=== PATIENT | female | born 1960 | race Caucasian/White ===

== ENCOUNTER → 2016-10-25 | Outpatient (CLI) | payer OTHER ==
[~2016-10-25] MED LIST: OXYC10TA12 OR
[2016-10-25 09:16] LABS: BASO % 0.6 % (0.0-1.0); EOS # 0.2 K/mm3 (0.0-0.50); EOS % 2.7 % (0.0-3.0); LARGE UNSTAINED CELL # 0.1 K/mm3 (0.0-0.4); LARGE UNSTAINED CELL % 1.2 % (0.0-4.0); LYMPH # 2.7 K/mm3 (1.5-4.5); LYMPH % 32.9 % (24.0-44.0); MEAN CORPUSCULAR HEMOGLOBIN 31.5 pg (27.0-33.0); MEAN CORPUSCULAR HGB CONC 34.2 g/dl (32.0-36.5); MONO # 0.4 K/mm3 (0.0-0.8); MONO % 4.9 % (0.0-5.0); NEUTROPHILS # 4.7 K/mm3 (1.8-7.7); NEUTROPHILS % 57.7 % (36.0-66.0); PLATELET COUNT, AUTOMATED 264 k/mm3 (150-450); RED CELL DISTRIBUTION WIDTH 13.2 % (11.5-14.5); WHITE BLOOD COUNT 8.2 K/mm3 (4.0-10.0)
[2016-10-25 11:00] LABS: ANION GAP 6 MEQ/L (8-16); BLOOD UREA NITROGEN 16 MG/DL (7-18); CALCIUM LEVEL 9.1 MG/DL (8.5-10.1); CARBON DIOXIDE LEVEL 29 MEQ/L (21-32); CHLORIDE LEVEL 109 MEQ/L (98-107); CREATININE FOR GFR 0.88 MG/DL (0.55-1.02); GLOMERULAR FILTRATION RATE > 60.0 (>51); GLUCOSE, FASTING 111 MG/DL (70-105); POTASSIUM SERUM 4.2 MEQ/L (3.5-5.1); SODIUM LEVEL 144 MEQ/L (136-145)
[2016-10-25 11:01] LABS: ALBUMIN 3.7 GM/DL (3.2-5.2); ALBUMIN/GLOBULIN RATIO 1.19 (1.00-1.93); ALKALINE PHOSPHATASE 71 U/L (45-117); ALT/SGPT 26 U/L (12-78); AST/SGOT 15 U/L (15-37); BILIRUBIN,TOTAL 0.5 MG/DL (0.2-1.0); CHOLESTEROL LEVEL 233 MG/DL (<200); TOTAL PROTEIN 6.8 GM/DL (6.4-8.2); TRIGLYCERIDES LEVEL 165 MG/DL (<150)
[2016-10-25 11:02] LABS: FREE T4 0.81 NG/DL (0.76-1.46)
== END ==
LOC: M LAB 08:50
PROVIDERS: ATTEND Nurse Practitioner Family
DX: E03.9 Hypothyroidism, unspecified (principal); Z13.228 Encounter for screening for other metabolic disorders; Z78.9 Other specified health status; Z13.0 Encounter for screening for diseases of the blood and blood-forming organs and certain disorders involving the immune mechanism; Z13.220 Encounter for screening for lipoid disorders

== ENCOUNTER 2016-11-08 19:33 | Emergency (ER) | payer OTHER ==
[2016-11-08] MEDS ORDERED: IBUPROFEN 800 MG TAB As Ordered ONE (19:57)
[2016-11-08] MEDS ORDERED: ONDANSETRON 4 MG ORAL DISINTEGRATING TAB (S0181) As Ordered ONE (19:57)
--- NOTE | 2016-11-08 22:47 | EDDOCDS ---
Nurse's Notes [facility] Name: Tessa Hughes Age: 55 yrs Sex: Female : 1960 Arrival Date: 11/08/2016 Time: 19:33 Bed Triage 2 Private MD: [facility] - [facility] Diagnosis: Cervical disc disorder with radiculopathy, mid-cervical region Presentation: 11/08 19:46 Red Flag criteria, pt brought back to room 26 for triage and for vital recheck. ko2 19:46 Presenting complaint: Significant other states: "severe LI for past 5 days" began jjr vomiting approx 90 minutes ago, numbness to right hand began yesterday and noted rash to right hand today. This patient has no additional risk factors. Adult Sepsis Screening: The patient does not have new or worsening altered mentation. Patient's respiratory rate is less than 22. Systolic blood pressure is greater than 100. Patient has a qSOFA score of 0- Negative Sepsis Screen. Suicide/Homicide risk assessment- the patient denies having any suicidal and/or homicidal ideations and does not present with any other emotional, behavioral or mental health complaints. Status: Patient is not a equipment services associate or dependent. Transition of care: patient was not received from another setting of care. 19:46 Acuity: DANIELLE Level 3 jjr 19:46 Method Of Arrival: Walkin/Carried/Asstd jjr Triage Assessment: 19:50 Headache History: This headache is more severe than any previous headaches the patient jjr has experienced. General: Appears in no apparent distress, Behavior is appropriate for age. Pain: Pain currently is 10 out of 10 on a pain scale. Pain began 5 days ago. Pain: Also complains of nausea, photophobia. HIV screening NA for this visit Offered previously. Neurological: Digital Asset Coordinator are equal bilaterally Reports headache numbness. Historical: - Allergies: Amoxicillin (medeiros to tongue); Ciprofloxacin (Rash); Benadryl (Hives); Codeine Sulfate (Hives); Erythromycin (Hives); Flexeril (Hives)states tongue swells; SULFA (SULFONAMIDES) (Hives); - Home Meds: 1. levothyroxine 112 mcg Oral tab 1 tab once daily new medication one week ago - PMHx: Hypothyroidism; Kidney stones; High Cholesterol; Depression; - PSHx: ; Hysterectomy; kidney stone removal X 4; - Social history: Smoking status: Patient uses tobacco products, current every day smoker. No barriers to communication noted, The patient speaks fluent Sami. - Family history: Not pertinent. - : The pt / caregiver states he / she is not on anticoagulants. Home medication list is obtained from the patient. - Exposure Risk Screening:: None identified. Assessment: 22:44 Reassessment: Patient appears in no apparent distress at this time. Patient states rw1 feeling better. Patient states symptoms have improved. Pain: Location: headche. Neurological: Level of Consciousness is awake, alert, obeys commands, Oriented to person, place, time. Respiratory: No deficits noted. Airway is patent Respiratory effort is even, unlabored. Derm: Skin is pink, warm & dry. normal. Vital Signs: 19:36 BP 175 / 94; Pulse 82; Resp 20 S; Temp 97.1(O); Pulse Ox 100% on R/A; Weight 70.76 kg gr2 (R); Height 5 ft. 0 in. (152.40 cm) (R); Pain 10/10; 20:17 BP 169 / 94; Pulse 72; Pulse Ox 99% on R/A; ead 22:44 BP 157 / 89; Pulse 78; Resp 18; Temp 97.0(T); Pulse Ox 96% on R/A; rw1 19:36 Body Mass Index 30.47 (70.76 kg, 152.40 cm) gr2 Vitals: 19:36 Log In Time: November 08, 2016 at 19:36. RN notified that patient meets Red Flag gr2 criteria. ED Course: 19:34 Patient visited by Gonzalez Zheng. gr2 19:34 Patient moved to Waiting gr2 19:35 [facility] is Private Physician. gr2 19:41 Patient visited by Gonzalez Zheng. gr2 19:45 Patient moved to PR2 / 26 ko2 19:48 Triage Initiated jjr 20:17 Patient visited by Reyna Rivero RN. ead 20:33 Patient moved to Pre RCE jjr 20:59 [facility] Payment Agreement was scanned into [employer] and attached to record. zo 22:01 Patient moved to Triage 2 jjr 22:07 Patient visited by Luli Ramos RN. ko2 22:19 Edward Crocker PA is [facility]. btw 22:20 Calixto Ruby DO is Attending Physician. btw 22:20 Patient visited by Edward Crocker PA. btw 22:34 [facility] is Referral Physician. btw 22:44 The patient / caregiver is instructed regarding the plan of care and ED course. rw1 22:44 No IV's were initiated during this patient's visit. No procedures done that require rw1 assistance. Administered Medications: 19:59 Drug: Ondansetron ODT 4 mg [ondansetron 4 mg disintegrating tablet (1 tabs)] Route: PO; jjr 22:44 Follow up: Response: No Adverse Reaction rw1 19:59 Drug: Ibuprofen 800 mg [ibuprofen 800 mg tablet (1 tabs)] Route: PO; jjr 22:43 Follow up: Response: No Adverse Reaction rw1 Order Results: There are currently no results for this order. Outcome: 22:34 Discharge ordered by Provider. btw 22:44 Discharge Assessment: Patient awake, alert and oriented x 3. No cognitive and/or rw1 functional deficits noted. Patient verbalized understanding of disposition instructions. patient administered narcotics - no. The following High Risk Discharge criteria are identified: None. Discharged to home ambulatory, with significant other. Condition: stable Condition: improved. Discharge instructions given to patient, Instructed on discharge instructions, follow up and referral plans. medication usage, Demonstrated understanding of instructions, medications, Pt was receptive of discharge instructions/ teaching. Prescriptions given X 2. No special radiology studies were completed. Property sent home with patient. 22:47 Patient left the ED. rw1 Signatures: Stevenson Youngblood LPN LPN rw1 Gisele Aragon Jessica RN INGRID jEdward Levine PA PA btw Gonzalez Zheng gr2 Reyna Rivero RN RN ead Ogden, Kari,RN RN ko2 MTDD
--- NOTE | 2016-11-08 22:47 | EDDOCDS ---
Physician Documentation [facility] Name: Tessa Hughes Age: 55 yrs Sex: Female : 1960 Arrival Date: 11/08/2016 Time: 19:33 Bed Triage 2 Private MD: [facility] - Adults Disposition: 11/08/16 22:34 Discharged to Home/Self Care. Impression: Cervical disc disorder with radiculopathy, mid-cervical region. - Condition is Stable. - Discharge Instructions: Cervical Radiculopathy. - Prescriptions for Robaxin 500 mg Oral Tablet - take 1 tablet by ORAL route every 6 hours As needed; 40 tablet. etodolac 200 mg Oral Capsule - take 1 capsule by ORAL route 3 times per day; 30 capsule. - Medication Reconciliation, Local Pharmacy Hours form. - Follow up: [facility] - Adults; When: Call to arrange an appointment; Reason: Further diagnostic work-up, Recheck today's complaints, Continuance of care. - Problem is an acute exacerbation. - Symptoms are unchanged. Historical: - Allergies: Amoxicillin (medeiros to tongue); Ciprofloxacin (Rash); Benadryl (Hives); Codeine Sulfate (Hives); Erythromycin (Hives); Flexeril (Hives)states tongue swells; SULFA (SULFONAMIDES) (Hives); - Home Meds: 1. levothyroxine 112 mcg Oral tab 1 tab once daily new medication one week ago - PMHx: Hypothyroidism; Kidney stones; High Cholesterol; Depression; - PSHx: ; Hysterectomy; kidney stone removal X 4; - Social history: Smoking status: Patient uses tobacco products, current every day smoker. No barriers to communication noted, The patient speaks fluent Albanian. - Family history: Not pertinent. - : The pt / caregiver states he / she is not on anticoagulants. Home medication list is obtained from the patient. - Exposure Risk Screening:: None identified. Vital Signs: 11/08 19:36 BP 175 / 94; Pulse 82; Resp 20 S; Temp 97.1(O); Pulse Ox 100% on R/A; Weight 70.76 kg / gr2 156 lbs (R); Height 5 ft. 0 in. (152.40 cm) (R); Pain 10/10; 20:17 BP 169 / 94; Pulse 72; Pulse Ox 99% on R/A; ead 22:44 BP 157 / 89; Pulse 78; Resp 18; Temp 97.0(T); Pulse Ox 96% on R/A; rw1 19:36 Body Mass Index 30.47 (70.76 kg, 152.40 cm) gr2 MDM: 19:56 Ondansetron ODT Oral Disintegrating Tablet 4 mg PO once ordered. jjr 19:56 Ibuprofen 800 mg PO once ordered. jjr 20:59 [facility] Payment Agreement was scanned into [employer] and attached to record. zo 22:33 Financial registration complete. zo Administered Medications: 19:59 Drug: Ondansetron ODT 4 mg [ondansetron 4 mg disintegrating tablet (1 tabs)] Route: PO; jjr 22:44 Follow up: Response: No Adverse Reaction rw1 19:59 Drug: Ibuprofen 800 mg [ibuprofen 800 mg tablet (1 tabs)] Route: PO; jjr 22:43 Follow up: Response: No Adverse Reaction rw1 Signatures: Stevenson Youngblood LPN LPN rw1 Gisele Aragon Jessica, RN RN jjEdward Aguirre PA PA btw The chart was reviewed and I authenticate all verbal orders and agree with the evaluation and treatment provided.Attachments: 20:59 [facility] Payment Agreement zo MTDD
--- NOTE | 2016-11-10 23:48 | EDDOCDS ---
Physician Documentation [facility] Name: Tessa Hughes Age: 55 yrs Sex: Female : 1960 Arrival Date: 11/08/2016 Time: 19:33 Bed Triage 2 Private MD: [facility] - Adults Disposition: 11/08/16 22:34 Discharged to Home/Self Care. Impression: Cervical disc disorder with radiculopathy, mid-cervical region. - Condition is Stable. - Discharge Instructions: Cervical Radiculopathy. - Prescriptions for Robaxin 500 mg Oral Tablet - take 1 tablet by ORAL route every 6 hours As needed; 40 tablet. etodolac 200 mg Oral Capsule - take 1 capsule by ORAL route 3 times per day; 30 capsule. - Medication Reconciliation, Local Pharmacy Hours form. - Follow up: [facility] - Adults; When: Call to arrange an appointment; Reason: Further diagnostic work-up, Recheck today's complaints, Continuance of care. - Problem is an acute exacerbation. - Symptoms are unchanged. Historical: - Allergies: Amoxicillin (medeiros to tongue); Ciprofloxacin (Rash); Benadryl (Hives); Codeine Sulfate (Hives); Erythromycin (Hives); Flexeril (Hives)states tongue swells; SULFA (SULFONAMIDES) (Hives); - Home Meds: 1. levothyroxine 112 mcg Oral tab 1 tab once daily new medication one week ago - PMHx: Hypothyroidism; Kidney stones; High Cholesterol; Depression; - PSHx: ; Hysterectomy; kidney stone removal X 4; - Social history: Smoking status: Patient uses tobacco products, current every day smoker. No barriers to communication noted, The patient speaks fluent Cameroonian. - Family history: Not pertinent. - : The pt / caregiver states he / she is not on anticoagulants. Home medication list is obtained from the patient. - Exposure Risk Screening:: None identified. Vital Signs: 11/08 19:36 BP 175 / 94; Pulse 82; Resp 20 S; Temp 97.1(O); Pulse Ox 100% on R/A; Weight 70.76 kg / gr2 156 lbs (R); Height 5 ft. 0 in. (152.40 cm) (R); Pain 10/10; 20:17 BP 169 / 94; Pulse 72; Pulse Ox 99% on R/A; ead 22:44 BP 157 / 89; Pulse 78; Resp 18; Temp 97.0(T); Pulse Ox 96% on R/A; rw1 19:36 Body Mass Index 30.47 (70.76 kg, 152.40 cm) gr2 MDM: 19:56 Ondansetron ODT Oral Disintegrating Tablet 4 mg PO once ordered. jjr 19:56 Ibuprofen 800 mg PO once ordered. jjr 20:59 [facility] Payment Agreement was scanned into [employer] and attached to record. zo 22:33 Financial registration complete. zo 11/09 13:46 T-Sheet-- Draft Copy was scanned into [employer] and attached to record. gb Administered Medications: 11/08 19:59 Drug: Ondansetron ODT 4 mg [ondansetron 4 mg disintegrating tablet (1 tabs)] Route: PO; jjr 22:44 Follow up: Response: No Adverse Reaction rw1 19:59 Drug: Ibuprofen 800 mg [ibuprofen 800 mg tablet (1 tabs)] Route: PO; jjr 22:43 Follow up: Response: No Adverse Reaction rw1 Signatures: Cortney Sauer, Reg Reg gb Stevenson Youngblood LPN LPN rw1 Gisele Aragon Jessica, INGRID RN jjr Edward Crocker PA PA btw The chart was reviewed and I authenticate all verbal orders and agree with the evaluation and treatment provided.Attachments: 20:59 [facility] Payment Agreement zo 11/09 13:46 T-Sheet-- Draft Copy gb Chart Complete MTDD
--- NOTE | 2016-11-10 23:48 | EDDOCDS ---
Nurse's Notes [facility] Name: Tessa uHghes Age: 55 yrs Sex: Female : 1960 Arrival Date: 11/08/2016 Time: 19:33 Bed Triage 2 Private MD: [facility] - Adults Diagnosis: Cervical disc disorder with radiculopathy, mid-cervical region Presentation: 11/08 19:46 Red Flag criteria, pt brought back to room 26 for triage and for vital recheck. ko2 19:46 Presenting complaint: Significant other states: "severe LI for past 5 days" began jjr vomiting approx 90 minutes ago, numbness to right hand began yesterday and noted rash to right hand today. This patient has no additional risk factors. Adult Sepsis Screening: The patient does not have new or worsening altered mentation. Patient's respiratory rate is less than 22. Systolic blood pressure is greater than 100. Patient has a qSOFA score of 0- Negative Sepsis Screen. Suicide/Homicide risk assessment- the patient denies having any suicidal and/or homicidal ideations and does not present with any other emotional, behavioral or mental health complaints. Status: Patient is not a marketing services coordinator or dependent. Transition of care: patient was not received from another setting of care. 19:46 Acuity: DANIELLE Level 3 jjr 19:46 Method Of Arrival: Walkin/Carried/Asstd jjr Triage Assessment: 19:50 Headache History: This headache is more severe than any previous headaches the patient jjr has experienced. General: Appears in no apparent distress, Behavior is appropriate for age. Pain: Pain currently is 10 out of 10 on a pain scale. Pain began 5 days ago. Pain: Also complains of nausea, photophobia. HIV screening NA for this visit Offered previously. Neurological: Commercial Loan Reviewer are equal bilaterally Reports headache numbness. Historical: - Allergies: Amoxicillin (medeiros to tongue); Ciprofloxacin (Rash); Benadryl (Hives); Codeine Sulfate (Hives); Erythromycin (Hives); Flexeril (Hives)states tongue swells; SULFA (SULFONAMIDES) (Hives); - Home Meds: 1. levothyroxine 112 mcg Oral tab 1 tab once daily new medication one week ago - PMHx: Hypothyroidism; Kidney stones; High Cholesterol; Depression; - PSHx: ; Hysterectomy; kidney stone removal X 4; - Social history: Smoking status: Patient uses tobacco products, current every day smoker. No barriers to communication noted, The patient speaks fluent Serbian. - Family history: Not pertinent. - : The pt / caregiver states he / she is not on anticoagulants. Home medication list is obtained from the patient. - Exposure Risk Screening:: None identified. Assessment: 22:44 Reassessment: Patient appears in no apparent distress at this time. Patient states rw1 feeling better. Patient states symptoms have improved. Pain: Location: headche. Neurological: Level of Consciousness is awake, alert, obeys commands, Oriented to person, place, time. Respiratory: No deficits noted. Airway is patent Respiratory effort is even, unlabored. Derm: Skin is pink, warm & dry. normal. Vital Signs: 19:36 BP 175 / 94; Pulse 82; Resp 20 S; Temp 97.1(O); Pulse Ox 100% on R/A; Weight 70.76 kg gr2 (R); Height 5 ft. 0 in. (152.40 cm) (R); Pain 10/10; 20:17 BP 169 / 94; Pulse 72; Pulse Ox 99% on R/A; ead 22:44 BP 157 / 89; Pulse 78; Resp 18; Temp 97.0(T); Pulse Ox 96% on R/A; rw1 19:36 Body Mass Index 30.47 (70.76 kg, 152.40 cm) gr2 Vitals: 19:36 Log In Time: November 08, 2016 at 19:36. RN notified that patient meets Red Flag gr2 criteria. ED Course: 19:34 Patient visited by Gonzalez Zheng. gr2 19:34 Patient moved to Waiting gr2 19:35 [facility] is Private Physician. gr2 19:41 Patient visited by Gonzalez Zheng. gr2 19:45 Patient moved to PR2 / 26 ko2 19:48 Triage Initiated jjr 20:17 Patient visited by Reyna Rivero RN. ead 20:33 Patient moved to Pre RCE jjr 20:59 [facility] Payment Agreement was scanned into [employer] and attached to record. zo 22:01 Patient moved to Triage 2 jjr 22:07 Patient visited by Luli Ramos RN. ko2 22:19 Edward Crocker PA is PHCP. btw 22:20 Calixto Ruby DO is Attending Physician. btw 22:20 Patient visited by Edward Crocker PA. btw 22:34 [facility] is Referral Physician. btw 22:44 The patient / caregiver is instructed regarding the plan of care and ED course. rw1 22:44 No IV's were initiated during this patient's visit. No procedures done that require rw1 assistance. 11/09 13:46 T-Sheet-- Draft Copy was scanned into [employer] and attached to record. gb Administered Medications: 11/08 19:59 Drug: Ondansetron ODT 4 mg [ondansetron 4 mg disintegrating tablet (1 tabs)] Route: PO; jjr 22:44 Follow up: Response: No Adverse Reaction rw1 19:59 Drug: Ibuprofen 800 mg [ibuprofen 800 mg tablet (1 tabs)] Route: PO; jjr 22:43 Follow up: Response: No Adverse Reaction rw1 Order Results: There are currently no results for this order. Outcome: 22:34 Discharge ordered by Provider. btw 22:44 Discharge Assessment: Patient awake, alert and oriented x 3. No cognitive and/or rw1 functional deficits noted. Patient verbalized understanding of disposition instructions. patient administered narcotics - no. The following High Risk Discharge criteria are identified: None. Discharged to home ambulatory, with significant other. Condition: stable Condition: improved. Discharge instructions given to patient, Instructed on discharge instructions, follow up and referral plans. medication usage, Demonstrated understanding of instructions, medications, Pt was receptive of discharge instructions/ teaching. Prescriptions given X 2. No special radiology studies were completed. Property sent home with patient. 22:47 Patient left the ED. rw1 Signatures: Cortney Sauer, Reg Reg Stevenson Carlson,CAR INSPECTOR CAR INSPECTOR rw1 Gisele Aragon Jessica, RN Edward Tran PA PA btw Gonzalez Zheng gr2 Reyna RiveroRN Luli Feng,RN RN ko2 Chart Complete MTDD
--- NOTE | 2016-11-10 23:48 | EDDOCDS ---
Physician Documentation [facility] Name: Tessa Hughes Age: 55 yrs Sex: Female : 1960 Arrival Date: 11/08/2016 Time: 19:33 Bed Triage 2 Private MD: [facility] - Adults Disposition: 11/08/16 22:34 Discharged to Home/Self Care. Impression: Cervical disc disorder with radiculopathy, mid-cervical region. - Condition is Stable. - Discharge Instructions: Cervical Radiculopathy. - Prescriptions for Robaxin 500 mg Oral Tablet - take 1 tablet by ORAL route every 6 hours As needed; 40 tablet. etodolac 200 mg Oral Capsule - take 1 capsule by ORAL route 3 times per day; 30 capsule. - Medication Reconciliation, Local Pharmacy Hours form. - Follow up: [facility] - Adults; When: Call to arrange an appointment; Reason: Further diagnostic work-up, Recheck today's complaints, Continuance of care. - Problem is an acute exacerbation. - Symptoms are unchanged. Historical: - Allergies: Amoxicillin (medeiros to tongue); Ciprofloxacin (Rash); Benadryl (Hives); Codeine Sulfate (Hives); Erythromycin (Hives); Flexeril (Hives)states tongue swells; SULFA (SULFONAMIDES) (Hives); - Home Meds: 1. levothyroxine 112 mcg Oral tab 1 tab once daily new medication one week ago - PMHx: Hypothyroidism; Kidney stones; High Cholesterol; Depression; - PSHx: ; Hysterectomy; kidney stone removal X 4; - Social history: Smoking status: Patient uses tobacco products, current every day smoker. No barriers to communication noted, The patient speaks fluent [place]. - Family history: Not pertinent. - : The pt / caregiver states he / she is not on anticoagulants. Home medication list is obtained from the patient. - Exposure Risk Screening:: None identified. Vital Signs: 11/08 19:36 BP 175 / 94; Pulse 82; Resp 20 S; Temp 97.1(O); Pulse Ox 100% on R/A; Weight 70.76 kg / gr2 156 lbs (R); Height 5 ft. 0 in. (152.40 cm) (R); Pain 10/10; 20:17 BP 169 / 94; Pulse 72; Pulse Ox 99% on R/A; ead 22:44 BP 157 / 89; Pulse 78; Resp 18; Temp 97.0(T); Pulse Ox 96% on R/A; rw1 19:36 Body Mass Index 30.47 (70.76 kg, 152.40 cm) gr2 MDM: 19:56 Ondansetron ODT Oral Disintegrating Tablet 4 mg PO once ordered. jjr 19:56 Ibuprofen 800 mg PO once ordered. jjr 20:59 [facility] Payment Agreement was scanned into [employer] and attached to record. zo 22:33 Financial registration complete. zo 11/09 13:46 T-Sheet-- Draft Copy was scanned into [employer] and attached to record. gb Administered Medications: 11/08 19:59 Drug: Ondansetron ODT 4 mg [ondansetron 4 mg disintegrating tablet (1 tabs)] Route: PO; jjr 22:44 Follow up: Response: No Adverse Reaction rw1 19:59 Drug: Ibuprofen 800 mg [ibuprofen 800 mg tablet (1 tabs)] Route: PO; jjr 22:43 Follow up: Response: No Adverse Reaction rw1 Signatures: Cortney Sauer, Reg Reg gb Stevenson Youngblood LPN LPN rw1 Gisele Aragon Jessica, INGRID RN jjr Edward Crocker PA PA btw The chart was reviewed and I authenticate all verbal orders and agree with the evaluation and treatment provided.Attachments: 20:59 [facility] Payment Agreement zo 11/09 13:46 T-Sheet-- Draft Copy gb Chart Complete MTDD
== END 2016-11-08 22:47 | disposition home or self-care (01) ==
LOC: M ED 19:33
DX: M54.12 Radiculopathy, cervical region (principal); E78.00 Pure hypercholesterolemia, unspecified; E03.9 Hypothyroidism, unspecified; F32.9 Major depressive disorder, single episode, unspecified; Z87.442 Personal history of urinary calculi; Z79.899 Other long term (current) drug therapy; Z88.0 Allergy status to penicillin; Z88.1 Allergy status to other antibiotic agents; Z88.2 Allergy status to sulfonamides; Z88.5 Allergy status to narcotic agent; Z88.8 Allergy status to other drugs, medicaments and biological substances; F17.210 Nicotine dependence, cigarettes, uncomplicated

== ENCOUNTER → 2016-11-15 | Outpatient (CLI) | payer OTHER ==
--- NOTE | 2016-11-15 15:43 | REP ---
MRI CERVICAL SPINE WITHOUT CONTRAST: HISTORY: Neck pain. Comparison 11/05/2015 A small left paracentral disc protrusion is present at the C3-4 level. There is minimal effacement of the thecal sac without spinal cord compression. Facet hypertrophy is present on the left. This produces minimal narrowing of the left C3 neural foramen. The right C3 neural foramen is patent. A disc bulge is present at the C4-5 level. The previously noted disc protrusion is not seen. The C4 neural foramina are patent. A disc bulge with associated osteophyte formation is present at the C5-6 level. There is minimal spinal cord compression. Bilateral uncinate process hypertrophy is present. This produces mild narrowing of the C5 neural foramina. A small central disc protrusion is present at the C6-7 level. There is minimal effacement of the thecal sac without spinal cord compression. The C6 neural foramina are patent. Disc bulges are present at the T2-3 through C4-5 levels. There is minimal effacement of the thecal sac without spinal cord compression. The neural foramina are patent. There is no other disc bulge or herniation. The remaining neural foramina are patent. The spinal cord is normal in signal intensity. There is no intradural extramedullary lesion. The C5-6 intervertebral disc is decreased in height consistent with disc degeneration. A hemangioma is present in the C7 vertebral body. Increased signal intensity on T2-weighted images is present in the endplates of the C5 and C6 vertebral bodies. This represents degenerative change. IMPRESSION: There is cervical spondylosis at the C3-4 through C6-7 levels most significant at the C5-6 level where there is minimal spinal cord compression. Findings at the C3-4 level are new. The previously noted disc protrusion at the C4-5 level is not seen. There is no other significant change. Signed by Syed Jennings MD 11/15/2016 03:44 [facility]
== END ==
LOC: M RAD 14:18
PROVIDERS: ATTEND Nurse Practitioner Family
DX: M47.12 Other spondylosis with myelopathy, cervical region (principal)

== ENCOUNTER 2016-12-12 15:48 | Emergency (ER) | payer OTHER ==
[~2016-12-12] VITALS: Ht 152.4 cm; Wt 70.3 kg
[2016-12-12] MEDS ORDERED: LEVOPOW21 PO (16:04)
[2016-12-12] MEDS ORDERED: LOSA50TA20 PO (16:04)
[2016-12-12] MEDS ORDERED: KETOROLAC 30 MG/ML VIAL (J1885) IV ONE (17:15)
[2016-12-12 17:47] LABS: MEAN CORPUSCULAR HEMOGLOBIN 30.7 pg (27.0-33.0); MEAN CORPUSCULAR VOLUME 88.9 fl (80.0-96.0); WHITE BLOOD COUNT 9.5 K/mm3 (4.0-10.0)
[2016-12-12 17:48] LABS: BASO # 0.1 K/mm3 (0.0-0.2); BASO % 0.7 % (0.0-1.0); EOS # 0.3 K/mm3 (0.0-0.50); EOS % 3.3 % (0.0-3.0); LARGE UNSTAINED CELL # 0.2 K/mm3 (0.0-0.4); LARGE UNSTAINED CELL % 1.8 % (0.0-4.0); LYMPH # 4.5 K/mm3 (1.5-4.5); LYMPH % 47.7 % (24.0-44.0); MEAN CORPUSCULAR HGB CONC 34.5 g/dl (32.0-36.5); MONO # 0.5 K/mm3 (0.0-0.8); MONO % 5.1 % (0.0-5.0); NEUTROPHILS # 3.9 K/mm3 (1.8-7.7); NEUTROPHILS % 41.4 % (36.0-66.0); PLATELET COUNT, AUTOMATED 294 k/mm3 (150-450); RED CELL DISTRIBUTION WIDTH 12.6 % (11.5-14.5)
[2016-12-12 17:51] LABS: ANION GAP 8 MEQ/L (8-16); BLOOD UREA NITROGEN 13 MG/DL (7-18); CALCIUM LEVEL 8.9 MG/DL (8.5-10.1); CARBON DIOXIDE LEVEL 26 MEQ/L (21-32); CHLORIDE LEVEL 108 MEQ/L (98-107); CREATININE FOR GFR 0.61 MG/DL (0.55-1.02); GLOMERULAR FILTRATION RATE > 60.0 (>51); GLUCOSE, FASTING 95 MG/DL (70-105); POTASSIUM SERUM 4.2 MEQ/L (3.5-5.1); SODIUM LEVEL 142 MEQ/L (136-145)
--- NOTE | 2016-12-12 18:40 | REPUSA ---
CLINICAL HISTORY: Right flank pain. TECHNIQUE: Multiple axial CT images were obtained through the abdomen and pelvis without administrat ion of oral or IV contrast material. COMPARISON: Correlation is made with contrast enhanced CT dated 01/02/2016. COMMENTS: There is a hypodense lesion noted at the hepatic dome measuring approximately 2 cm most compatible wi th hemangioma is unchanged when compared with the prior study. There is no intra or extrahepatic jovan iary ductal dilatation. The spleen is normal. The gallbladder is within normal limits. The pancrea s is of normal contour and attenuation characteristics. There is no evidence of adrenal mass. The kidneys are normal in size, shape and configuration. There are two punctuate nonobstructing calc rosa elena noted in the mid-pole of the right kidney. There is a one punctate nonobstructing calculus is no david in the mid-pole of the left kidney. There is no hydroureter or hydronephrosis. There is no evidence for appendicitis. There is no bowel wall thickening. No evidence for small or large bowel obstruction. There is no evidence of abdominal ascites or lymphadenopathy. There is no evidence of intrinsic or extrinsic bladder mass. There is no pelvic ascites or lymphaden opathy. Patient is status post complete hysterectomy. Images of the lung bases show no evidence of pleural or parenchymal mass. There are no pleural effus ions. The bony structures are free of lytic or blastic lesions. Multilevel degenerative changes are seen i nvolving the thoracolumbar spine. IMPRESSION: 1. Punctate nonobstructing bilateral renal calculi. 2. Hepatic regions most compatible with hemangioma. Thank you for your kind referral of this patient. We appreciate the opportunity to participate in thi s patient's care.
[2016-12-12] MEDS ORDERED: ROBA500T PO (18:52)
[2016-12-12] MEDS ORDERED: MOTR200T44 PO (18:52)
[2016-12-12 19:16] VITALS: BP 134/75
== END 2016-12-12 19:19 | disposition home or self-care (01) ==
LOC: M ED 16:54
DX: N20.0 Calculus of kidney (principal)
CPT/HCPCS: 74176; 80048; 85025; 96374; 99283; J1885

== ENCOUNTER → 2016-12-30 | Outpatient (CLI) | payer OTHER ==
[~2016-12-30] MED LIST changes: +LEVOPOW21 PO; +LOSA50TA20 PO; +MOTR200T44 PO; +ROBA500T PO
--- NOTE | 2016-12-30 17:54 | REP ---
CT abdomen pelvis without IV and oral contrast: Comparisons are 12/12/2016 without IV contrast of 01/02/2016 with IV contrast. There are two tiny right renal calculi. There is a single tiny left renal calculus. These calculi are nonobstructive. There is no hydronephrosis on the right on the left. There are no ureteral calculi on the right on the left. There are no bladder calculi. There is a stable hypo dense lesion in the medial segment of the hepatic left lobe of which on prior studies of IV contrast is characteristics of hemangioma. This is unchanged. The unenhanced hepatic parenchyma, gallbladder, pancreas and spleen are otherwise unremarkable. The adrenals, aorta, bowel and mesentery are unremarkable. Pelvis: The appendix is is not identified, however there is no pericecal inflammation or abscess. There is a hysterectomy, unchanged. The bladder is unremarkable. There is no adenopathy or ascites. Pelvic bowel loops are unremarkable. Impression: Nonobstructive renal calculi bilaterally. No ureteral calculi. No hydronephrosis. Stable hypodense lesion in the left lobe of the liver which on prior studies has characteristics of hemangioma as discussed. Hysterectomy. Otherwise, essentially negative CT study of the abdomen and pelvis. Signed by Sandoval Lechuga MD 12/30/2016 05:44 P
== END ==
LOC: M RAD 17:23
PROVIDERS: ATTEND Nurse Practitioner Family
DX: N20.0 Calculus of kidney (principal); K76.9 Liver disease, unspecified

== ENCOUNTER → 2016-12-31 | Outpatient (CLI) | payer OTHER ==
[2016-12-31 13:57] LABS: MEAN CORPUSCULAR HEMOGLOBIN 30.5 pg (27.0-33.0); MEAN CORPUSCULAR HGB CONC 33.8 g/dl (32.0-36.5); MEAN CORPUSCULAR VOLUME 90.3 fl (80.0-96.0); RED CELL DISTRIBUTION WIDTH 12.5 % (11.5-14.5); WHITE BLOOD COUNT 6.8 K/mm3 (4.0-10.0)
[2016-12-31 14:30] LABS: ANION GAP 9 MEQ/L (8-16); BLOOD UREA NITROGEN 13 MG/DL (7-18); CALCIUM LEVEL 9.6 MG/DL (8.5-10.1); CARBON DIOXIDE LEVEL 27 MEQ/L (21-32); CHLORIDE LEVEL 106 MEQ/L (98-107); CREATININE FOR GFR 0.55 MG/DL (0.55-1.02); GLOMERULAR FILTRATION RATE > 60.0 (>51); GLUCOSE, FASTING 99 MG/DL (70-105); POTASSIUM SERUM 4.3 MEQ/L (3.5-5.1); SODIUM LEVEL 142 MEQ/L (136-145)
== END ==
LOC: M LAB 12-30 17:47
PROVIDERS: ATTEND Nurse Practitioner Family
DX: R52 Pain, unspecified (principal)

== ENCOUNTER → 2017-01-05 | Outpatient (REF) | payer OTHER | LOC: M SMT 16:46 | PROVIDERS: ATTEND Nurse Practitioner Women's Health | DX: N20.0 Calculus of kidney (principal) ==

== ENCOUNTER 2017-03-12 04:33 | Emergency (ER) | payer OTHER ==
[2017-03-12] MEDS ORDERED: ZOLO50TA PO (05:02)
[2017-03-12] MEDS ORDERED: NEUR300C PO (08:37)
[2017-03-12] MEDS ORDERED: MEDR4PAK PO (08:37)
[2017-03-12 08:43] VITALS: BP 149/86
== END 2017-03-12 08:44 | disposition home or self-care (01) ==
LOC: M ED 07:51
DX: M54.12 Radiculopathy, cervical region (principal); F17.200 Nicotine dependence, unspecified, uncomplicated; E78.00 Pure hypercholesterolemia, unspecified; I10 Essential (primary) hypertension; Z87.442 Personal history of urinary calculi; E07.9 Disorder of thyroid, unspecified; F41.9 Anxiety disorder, unspecified; F32.9 Major depressive disorder, single episode, unspecified; Z79.899 Other long term (current) drug therapy; Z88.0 Allergy status to penicillin; Z88.2 Allergy status to sulfonamides; Z88.8 Allergy status to other drugs, medicaments and biological substances; Z91.02 Food additives allergy status

== ENCOUNTER 2017-03-24 10:00 | Outpatient (RCR) | payer OTHER ==
[~2017-03-24 10:00] MED LIST changes: +MEDR4PAK PO; +NEUR300C PO; +ZOLO50TA PO
== END 2017-03-25 | disposition home or self-care (01) ==
LOC: M PT 10:00
PROVIDERS: ATTEND Neurological Surgery
DX: Z51.89 Encounter for other specified aftercare (principal); M54.2 Cervicalgia

== ENCOUNTER 2017-03-27 19:53 | Emergency (ER) | payer OTHER ==
[~2017-03-27] VITALS: Ht 162.6 cm; Wt 72.7 kg
[2017-03-27] MEDS ORDERED: IBUPROFEN 600 MG TAB PO ONE (20:45)
[2017-03-27] MEDS ORDERED: IBUP-1022 PO (21:14)
[2017-03-27 21:23] VITALS: BP 171/89
--- NOTE | 2017-03-28 07:10 | REP ---
Clinical: Trauma . Technique: AP, lateral, bilateral oblique views right ankle. Findings: No acute fracture or dislocation. Skeletal structures and joint spaces are intact and normal. Ankle mortise appears stable. No subcutaneous emphysema or radiodense foreign body. Impression: Normal right ankle radiograph series. Signed by Henrique Parra MD 03/28/2017 07:02 A
== END 2017-03-27 21:24 | disposition home or self-care (01) ==
LOC: M ED 19:53
DX: S93.401A Sprain of unspecified ligament of right ankle, initial encounter (principal); I10 Essential (primary) hypertension; F41.9 Anxiety disorder, unspecified; F42.9 Obsessive-compulsive disorder, unspecified; E03.9 Hypothyroidism, unspecified; X58.XXXA Exposure to other specified factors, initial encounter; Y92.410 Unspecified street and highway as the place of occurrence of the external cause; Y99.9 Unspecified external cause status; Y93.9 Activity, unspecified; Z79.899 Other long term (current) drug therapy; Z88.0 Allergy status to penicillin; Z88.1 Allergy status to other antibiotic agents; Z88.2 Allergy status to sulfonamides; Z88.8 Allergy status to other drugs, medicaments and biological substances; Z91.048 Other nonmedicinal substance allergy status

== ENCOUNTER 2017-05-01 08:33 | Emergency (ER) | payer OTHER ==
[~2017-05-01] VITALS: Ht 152.4 cm; Wt 72.7 kg
[~2017-05-01 08:33] MED LIST changes: +IBUP-1022 PO
[2017-05-01] MEDS ORDERED: LORazepam 2 MG/ML VIAL (J2060) IV STA (09:09)
[2017-05-01] MEDS ORDERED: SERTRALINE HCL 50 MG TAB PO ONE (09:15)
[2017-05-01] MEDS ORDERED: LOSARTAN 50 MG TAB PO ONE (09:15)
[2017-05-01] MEDS ORDERED: GABAPENTIN 300 MG CAP PO ONE (09:15)
[2017-05-01 09:17] LABS: BASO # 0.1 K/mm3 (0.0-0.2); EOS # 0.3 K/mm3 (0.0-0.50); EOS % 3.4 % (0.0-3.0); LARGE UNSTAINED CELL # 0.2 K/mm3 (0.0-0.4); LARGE UNSTAINED CELL % 2.1 % (0.0-4.0); LYMPH # 3.5 K/mm3 (1.5-4.5); LYMPH % 44.6 % (24.0-44.0); MEAN CORPUSCULAR HEMOGLOBIN 30.7 pg (27.0-33.0); MEAN CORPUSCULAR HGB CONC 35.1 g/dl (32.0-36.5); MEAN CORPUSCULAR VOLUME 87.5 fl (80.0-96.0); MONO # 0.4 K/mm3 (0.0-0.8); MONO % 4.9 % (0.0-5.0); NEUTROPHILS # 3.4 K/mm3 (1.8-7.7); NEUTROPHILS % 44.1 % (36.0-66.0); PLATELET COUNT, AUTOMATED 258 k/mm3 (150-450); RED CELL DISTRIBUTION WIDTH 13.7 % (11.5-14.5); WHITE BLOOD COUNT 7.8 K/mm3 (4.0-10.0)
[2017-05-01 09:31] LABS: ANION GAP 8 MEQ/L (8-16); BLOOD UREA NITROGEN 5 MG/DL (7-18); CALCIUM LEVEL 8.8 MG/DL (8.5-10.1); CARBON DIOXIDE LEVEL 27 MEQ/L (21-32); CHLORIDE LEVEL 106 MEQ/L (98-107); CREATININE FOR GFR 0.63 MG/DL (0.55-1.02); FREE T4 0.69 NG/DL (0.76-1.46); GLOMERULAR FILTRATION RATE > 60.0 (>51); GLUCOSE, FASTING 89 MG/DL (70-105); POTASSIUM SERUM 3.5 MEQ/L (3.5-5.1); SODIUM LEVEL 141 MEQ/L (136-145)
[2017-05-01] MEDS ORDERED: LEVOTHYROXINE 100MCG TABLET (0.1MG) PO ONE (10:15)
[2017-05-01] MEDS ORDERED: LOSA100T36 PO (10:29)
[2017-05-01] MEDS ORDERED: NEUR300C PO (10:29)
[2017-05-01] MEDS ORDERED: LEVO200T4 PO (10:29)
[2017-05-01 10:56] VITALS: BP 144/92
--- NOTE | 2017-05-01 18:10 | ECGEPIP ---
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
== END 2017-05-01 11:05 | disposition home or self-care (01) ==
LOC: M ED 08:33
DX: F43.0 Acute stress reaction (principal); G43.909 Migraine, unspecified, not intractable, without status migrainosus; E03.9 Hypothyroidism, unspecified; R07.89 Other chest pain; I10 Essential (primary) hypertension; M50.30 Other cervical disc degeneration, unspecified cervical region; F31.9 Bipolar disorder, unspecified; F17.200 Nicotine dependence, unspecified, uncomplicated; Z79.899 Other long term (current) drug therapy; Z88.0 Allergy status to penicillin; Z91.02 Food additives allergy status; Z88.8 Allergy status to other drugs, medicaments and biological substances; Z88.2 Allergy status to sulfonamides
CPT/HCPCS: 80048; 82550; 82553; 84439; 84443; 85025; 93000; 96374; 99284; J2060

== ENCOUNTER 2017-06-22 06:10 | Emergency (ER) | payer OTHER ==
[~2017-06-22] VITALS: Ht 152.4 cm; Wt 68.2 kg
[~2017-06-22 06:10] MED LIST changes: +LEVO200T4 PO; +LOSA100T36 PO
[2017-06-22] MEDS ORDERED: LOSA100T8 PO (06:21)
[2017-06-22] MEDS ORDERED: ALBU17IN (06:21)
[2017-06-22] MEDS ORDERED: GABA-282 PO (06:21)
[2017-06-22] MEDS ORDERED: KETOROLAC TROMETHAMINE 10 MG TAB PO ONE (06:45)
[2017-06-22] MEDS ORDERED: NAPR500T3 PO (07:21)
[2017-06-22 07:33] VITALS: BP 135/86
--- NOTE | 2017-06-22 07:35 | REP ---
Clinical: Trauma. Technique: AP, lateral, bilateral oblique views right hand . Findings: The osseous structures and joint spaces are intact and normal. There is no evidence for acute fracture or dislocation. Surrounding soft tissues are unremarkable. No subcutaneous emphysema or radiodense foreign body. Impression: Age-related changes. No acute fracture or dislocation. Signed by Henrique Parra MD 06/22/2017 07:26 A
== END 2017-06-22 07:35 | disposition home or self-care (01) ==
LOC: M ED 06:10
DX: S63.656A Sprain of metacarpophalangeal joint of right little finger, initial encounter (principal); S63.641A Sprain of metacarpophalangeal joint of right thumb, initial encounter; W19.XXXA Unspecified fall, initial encounter; Y92.238 Other place in hospital as the place of occurrence of the external cause; Y93.9 Activity, unspecified; Y99.9 Unspecified external cause status; I10 Essential (primary) hypertension; E03.9 Hypothyroidism, unspecified; J45.909 Unspecified asthma, uncomplicated; Z87.442 Personal history of urinary calculi; F41.9 Anxiety disorder, unspecified; F32.9 Major depressive disorder, single episode, unspecified; F17.200 Nicotine dependence, unspecified, uncomplicated; Z79.899 Other long term (current) drug therapy; Z88.0 Allergy status to penicillin; Z88.2 Allergy status to sulfonamides; Z88.8 Allergy status to other drugs, medicaments and biological substances; Z91.02 Food additives allergy status

== ENCOUNTER → 2017-07-19 | Outpatient (REF) | payer OTHER ==
[~2017-07-19] MED LIST changes: +ALBU17IN; +GABA-282 PO; +LOSA100T8 PO; +NAPR500T3 PO
== END ==
LOC: M LAB REF 14:17
PROVIDERS: ATTEND Nurse Practitioner Adult Health
DX: E78.5 Hyperlipidemia, unspecified (principal)

== ENCOUNTER → 2017-09-14 | Outpatient (REF) | payer OTHER | LOC: M LAB REF 13:07 | PROVIDERS: ATTEND Nurse Practitioner Adult Health | DX: E78.5 Hyperlipidemia, unspecified (principal); E03.9 Hypothyroidism, unspecified; E55.9 Vitamin D deficiency, unspecified ==

== ENCOUNTER 2017-11-20 10:19 | Emergency (ER) | payer OTHER ==
[2017-11-20] MEDS: predniSONE 20 MG TAB PO (10:59)
== END 2017-11-20 11:04 | disposition home or self-care (01) ==
LOC: M ED 10:19
DX: L23.9 Allergic contact dermatitis, unspecified cause (principal); I10 Essential (primary) hypertension; J45.909 Unspecified asthma, uncomplicated; F17.210 Nicotine dependence, cigarettes, uncomplicated; Z79.890 Hormone replacement therapy; Z79.899 Other long term (current) drug therapy; Z88.0 Allergy status to penicillin; Z88.8 Allergy status to other drugs, medicaments and biological substances; Z88.2 Allergy status to sulfonamides; Z88.1 Allergy status to other antibiotic agents; Z91.02 Food additives allergy status; Z86.19 Personal history of other infectious and parasitic diseases
CPT/HCPCS: 99282

== ENCOUNTER → 2018-06-30 | Outpatient (REF) | payer OTHER, MEDICAID ==
[2018-06-30 19:16] LABS: FREE THYROXINE INDEX 4.2 % (1.3-4.8); T UPTAKE 33 % (30-39); THYROID STIMULATING HORMONE 0.901 uIU/ML (0.358-3.740); THYROXINE (T4) 12.7 UG/DL (4.5-12.0)
== END ==
LOC: M LAB REF 17:29
DX: E03.9 Hypothyroidism, unspecified (principal)

== ENCOUNTER → 2018-07-24 | Outpatient (REF) | payer OTHER, MEDICAID ==
[2018-07-24 19:05] LABS: T UPTAKE 35 % (30-39); THYROID STIMULATING HORMONE 0.228 uIU/ML (0.358-3.740); THYROXINE (T4) 14.2 UG/DL (4.5-12.0)
== END ==
LOC: M LAB REF 17:30
DX: E03.9 Hypothyroidism, unspecified (principal)
CPT/HCPCS: 84443

== ENCOUNTER → 2018-11-21 | Outpatient (REF) | payer OTHER, MEDICAID ==
[~2018-11-21] MED LIST changes: -GABA-282 PO; +GABA-843 PO; -LOSA100T36 PO; +LOSA100T50 PO; -LOSA50TA20 PO; +LOSA50TA88 PO; +NAPR-885 PO; -NAPR500T3 PO; +PRED10TA2 PO
== END ==
LOC: M LAB REF 19:08
PROVIDERS: ATTEND Nurse Practitioner Adult Health
DX: E03.9 Hypothyroidism, unspecified (principal)

== ENCOUNTER → 2019-01-02 | Outpatient (REF) | payer OTHER, MEDICAID | LOC: M LAB REF 16:46 | PROVIDERS: ATTEND Nurse Practitioner Adult Health | DX: E03.9 Hypothyroidism, unspecified (principal) ==

== ENCOUNTER 2019-01-16 16:18 | Emergency (ER) | payer MEDICAID, OTHER ==
[~2019-01-16] VITALS: Ht 152.4 cm; Wt 75.9 kg
[2019-01-16] MEDS ORDERED: IPRATROPIUM 0.5MG/ALBUTEROL 2.5MG INH SOL UD 3ML (DUONEB)(J7620) NEB ONE (18:00)
--- NOTE | 2019-01-16 18:12 | REP ---
At x-ray: Two views. History: Short of breath and cough. Comparison chest x-ray: October 12, 2015. Findings: The lungs are symmetrically aerated and free of infiltrate. Pleural angles are sharp. Heart size is normal. Pulmonary vasculature is not increased. No significant bony abnormality is seen. Impression: Negative chest x-ray. Electronically Signed by Richard Shook MD 01/16/2019 06:04 P
[2019-01-16 18:19] LABS: BASO % 0.5 % (0.0-1.0); EOS # 0.3 10^3/uL (0.0-0.50); EOS % 3.1 % (0.0-3.0); HEMATOCRIT 41.9 % (36.0-47.0); HEMOGLOBIN 14.9 g/dl (12.0-15.5); LYMPH # 3.6 10^3/uL (1.5-4.5); LYMPH % 42.1 % (24.0-44.0); MEAN CORPUSCULAR HEMOGLOBIN 31.6 pg (27.0-33.0); MEAN CORPUSCULAR HGB CONC 35.6 g/dl (32.0-36.5); MEAN CORPUSCULAR VOLUME 88.8 fl (80.0-96.0); MONO # 0.4 10^3/uL (0.0-0.8); MONO % 5.1 % (0.0-5.0); NEUTROPHILS # 4.1 10^3/uL (1.8-7.7); NEUTROPHILS % 48.7 % (36.0-66.0); PLATELET COUNT, AUTOMATED 270 10^3/uL (150-450); RED BLOOD COUNT 4.72 10^6/uL (4.00-5.40); WHITE BLOOD COUNT 8.5 10^3/uL (4.0-10.0)
[2019-01-16 18:46] LABS: BLOOD UREA NITROGEN 14 MG/DL (7-18); C REACTIVE PROTEIN QUANTITATIV < 0.30 MG/DL (0.00-0.30); CALCIUM LEVEL 9.2 MG/DL (8.8-10.2); CARBON DIOXIDE LEVEL 27 MEQ/L (21-32); CHLORIDE LEVEL 107 MEQ/L (98-107); CREATININE FOR GFR 0.66 MG/DL (0.55-1.30); FREE T4 1.13 NG/DL (0.76-1.46); GLOMERULAR FILTRATION RATE > 60.0 (>45); GLUCOSE, FASTING 88 MG/DL (70-100); POTASSIUM SERUM 3.6 MEQ/L (3.5-5.1); SODIUM LEVEL 141 MEQ/L (136-145); URIC ACID 4.4 MG/DL (2.6-6.0)
[2019-01-16 19:01] LABS: INFLUENZA A AMPLIFICATION NEGATIVE (NEGATIVE); INFLUENZA B AMPLIFICATION NEGATIVE (NEGATIVE)
[2019-01-16 19:14] LABS: ERYTHROCYTE SEDIMENTATION RATE 10 mm/hr (0-30)
[2019-01-16] MEDS ORDERED: PRED20TA PO (19:23)
[2019-01-16] MEDS ORDERED: VENTAER INH (19:23)
[2019-01-16 19:45] VITALS: BP 188/100
--- NOTE | 2019-01-17 08:00 | REP ---
Right hand series: Four views. History: Pain in the right hand. Unable to fully open. [place] a pop. Comparison radiographs of the right hand are from June 22, 2017. Findings: Four views right hand show some flexion of the MCP joints of the fingers. There is a small dystrophic calcification at the dorsal aspect of the first MCP joint. No fracture is seen. No opaque foreign body is noted. There is dorsal soft tissue swelling over the MCP joints of the fingers on the lateral view. Impression: Soft-tissue swelling and incomplete extension of the finger MCP joints. No acute bony abnormality. Electronically Signed by Richard Shook MD 01/17/2019 09:10 A
== END 2019-01-16 19:47 | disposition home or self-care (01) ==
LOC: M ED 16:18
DX: J02.9 Acute pharyngitis, unspecified (principal); J45.901 Unspecified asthma with (acute) exacerbation; E03.9 Hypothyroidism, unspecified; M79.641 Pain in right hand; M62.441 Contracture of muscle, right hand; I10 Essential (primary) hypertension; E78.5 Hyperlipidemia, unspecified; F33.9 Major depressive disorder, recurrent, unspecified; F41.9 Anxiety disorder, unspecified; Z79.899 Other long term (current) drug therapy; Z88.0 Allergy status to penicillin; Z88.1 Allergy status to other antibiotic agents; Z88.2 Allergy status to sulfonamides; Z88.8 Allergy status to other drugs, medicaments and biological substances; Z91.048 Other nonmedicinal substance allergy status; F17.210 Nicotine dependence, cigarettes, uncomplicated

== ENCOUNTER 2019-03-20 20:11 | Emergency (ER) | payer OTHER ==
[~2019-03-20] VITALS: Ht 152.4 cm; Wt 75.0 kg
[~2019-03-20 20:11] MED LIST changes: +PRED20TA PO; +VENTAER INH
[2019-03-20 20:55] LABS: BASO # 0.1 10^3/uL (0.0-0.2); BASO % 0.4 % (0.0-1.0); EOS # 0.2 10^3/uL (0.0-0.50); EOS % 1.1 % (0.0-3.0); HEMATOCRIT 48.4 % (36.0-47.0); HEMOGLOBIN 16.9 g/dl (12.0-15.5); LYMPH # 3.4 10^3/uL (1.5-4.5); LYMPH % 21.5 % (24.0-44.0); MEAN CORPUSCULAR HEMOGLOBIN 32.4 pg (27.0-33.0); MEAN CORPUSCULAR HGB CONC 34.9 g/dl (32.0-36.5); MEAN CORPUSCULAR VOLUME 92.7 fl (80.0-96.0); MONO # 0.5 10^3/uL (0.0-0.8); MONO % 3.4 % (0.0-5.0); NEUTROPHILS # 11.5 10^3/uL (1.8-7.7); NEUTROPHILS % 73.2 % (36.0-66.0); PLATELET COUNT, AUTOMATED 265 10^3/uL (150-450); RED BLOOD COUNT 5.22 10^6/uL (4.00-5.40); WHITE BLOOD COUNT 15.8 10^3/uL (4.0-10.0)
[2019-03-20 21:16] LABS: ALBUMIN 4.5 GM/DL (3.2-5.2); ALT/SGPT 31 U/L (12-78); BILIRUBIN,DIRECT 0.2 MG/DL (0.0-0.2); BILIRUBIN,TOTAL 0.5 MG/DL (0.2-1.0); BLOOD UREA NITROGEN 15 MG/DL (7-18); CALCIUM LEVEL 10.3 MG/DL (8.8-10.2); CARBON DIOXIDE LEVEL 29 MEQ/L (21-32); CHLORIDE LEVEL 106 MEQ/L (98-107); CREATININE FOR GFR 0.93 MG/DL (0.55-1.30); GLOMERULAR FILTRATION RATE > 60.0 (>45); GLUCOSE, FASTING 112 MG/DL (70-100); LIPASE 78 U/L (73-393); POTASSIUM SERUM 3.5 MEQ/L (3.5-5.1); SODIUM LEVEL 143 MEQ/L (136-145); TOTAL PROTEIN 8.1 GM/DL (6.4-8.2)
[2019-03-20] MEDS ORDERED: NS 1,000 ML IV ONE (23:45)
[2019-03-20] MEDS ORDERED: KETOROLAC 30 MG/ML VIAL (J1885) IV ONE (23:45)
[2019-03-21 01:51] VITALS: BP 125/78
[2019-03-21] MEDS ORDERED: ONDA4TAB6 PO (01:58)
== END 2019-03-21 02:08 | disposition home or self-care (01) ==
LOC: M ED 20:11
DX: R11.10 Vomiting, unspecified (principal); R19.7 Diarrhea, unspecified; T62.91XA Toxic effect of unspecified noxious substance eaten as food, accidental (unintentional), initial encounter; X58.XXXA Exposure to other specified factors, initial encounter; Y92.89 Other specified places as the place of occurrence of the external cause; I10 Essential (primary) hypertension; E03.9 Hypothyroidism, unspecified; Z79.899 Other long term (current) drug therapy; Z79.890 Hormone replacement therapy; Z88.0 Allergy status to penicillin; Z88.1 Allergy status to other antibiotic agents; Z88.2 Allergy status to sulfonamides; Z88.8 Allergy status to other drugs, medicaments and biological substances; Z91.018 Allergy to other foods
CPT/HCPCS: 36415; 80048; 80076; 83690; 85025; 96361; 96374; 99284; J1885

== ENCOUNTER → 2019-03-22 | Outpatient (CLI) | payer OTHER ==
[~2019-03-22] MED LIST changes: +ONDA4TAB6 PO
--- NOTE | 2019-03-22 11:14 | REP ---
Clinical: Trauma. Technique: AP, lateral, bilateral oblique views left foot . Findings: The osseous structures and joint spaces are intact and normal. There is no evidence for acute fracture or dislocation. Surrounding soft tissues are unremarkable. No subcutaneous emphysema or radiodense foreign body. Impression: No acute fracture or dislocation. Electronically Signed by Henrique Parra MD 03/22/2019 11:06 A
== END ==
LOC: M RAD 10:21
PROVIDERS: ATTEND Physician Assistant Medical
DX: M79.675 Pain in left toe(s) (principal)

== ENCOUNTER 2019-05-30 20:29 | Emergency (ER) | payer OTHER ==
[~2019-05-30] VITALS: Ht 152.4 cm; Wt 72.7 kg
[2019-05-30] MEDS ORDERED: ACETAMINOPHEN 325 MG TAB PO ONE (21:15)
--- NOTE | 2019-05-30 21:24 | REPVR ---
EXAM: CT Head Without Contrast EXAM DATE/TIME: 05/30/2019 8:51 PM CLINICAL HISTORY: 58 years old, female; Pain; Other: Fall TECHNIQUE: Imaging protocol: Computed tomography of the head without contrast. Radiation optimization: All CT scans at this facility use at least one of these dose optimization techniques: automated exposure control; mA and/or kV adjustment per patient size (includes targeted exams where dose is matched to clinical indication); or iterative reconstruction. COMPARISON: No relevant prior studies available. FINDINGS: Brain: Ventricles, basilar cisterns, and sulci are normal in size for age. No intracranial mass, mass effect or midline shift. No acute intracranial hemorrhage. No focal effacement of cortical sulci to indicate acute cortical infarct. Bones/joints: No calvarial fracture or destructive process. Sphenoid sinus postinflammatory hyperostosis Sinuses: Mild pansinus mucosal thickening is present. Mastoid air cells: Mastoid air cells are normally aerated. Orbits: Imaged orbits are unremarkable. Soft tissues: Mild midline forehead extracranial scalp swelling. IMPRESSION: Minor midline forehead extracranial scalp swelling. No underlying acute intracranial abnormality. Electronically signed by: Jack Damon On 05/30/2019 21:23:54 PM
--- NOTE | 2019-05-30 21:25 | REPVR ---
EXAM: CT Cervical Spine Without Contrast EXAM DATE/TIME: 05/30/2019 8:51 PM CLINICAL HISTORY: 58 years old, female; Pain; Other: Fall TECHNIQUE: Imaging protocol: Computed tomography images of the cervical spine without contrast. Radiation optimization: All CT scans at this facility use at least one of these dose optimization techniques: automated exposure control; mA and/or kV adjustment per patient size (includes targeted exams where dose is matched to clinical indication); or iterative reconstruction. COMPARISON: MRI-Spine,Cervical without con 11/15/2016 2:42 PM FINDINGS: Vertebrae: No traumatic segmental malalignment of cervical spine or craniocervical junction. Vertebral body height is maintained at all levels. No acute fracture. No destructive or blastic cervical spine osseous lesion. Discs/Spinal canal/Neural foramina: Intervertebral disc height is decreased at multiple levels, with typical degenerative pattern and associated endplate, articular pillar and uncovertebral spurs. Moderate spinal canal stenosis C5-6 secondary to posterior vertebral osteophytes. Mild C5-6 bilateral osseous neural foraminal stenosis secondary to uncovertebral arthropathy Prevertebral Space: Prevertebral soft tissues demonstrate no asymmetry. Lungs: No concerning abnormality of the imaged lung apices. IMPRESSION: 1. No acute fracture or traumatic subluxation of the cervical spine. 2. Multilevel degenerative disc and articular pillar arthropathy. Electronically signed by: Jack Damon On 05/30/2019 21:25:36 PM
[2019-05-30] MEDS ORDERED: IBUP-1022 PO (22:09)
[2019-05-30] MEDS ORDERED: IBUPROFEN 600 MG TAB PO ONE (22:15)
[2019-05-30] MEDS ORDERED: METOCLOPRAMIDE 10 MG TAB PO ONE (22:15)
[2019-05-30 23:01] VITALS: BP 176/82
[2019-05-30] MEDS ORDERED: LABETALOL HCL 100 MG/20 ML VIAL IV STA (23:12)
--- NOTE | 2019-06-01 06:50 | ECGEPIP ---
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
== END 2019-05-30 23:12 | disposition home or self-care (01) ==
LOC: M ED 20:29
DX: S00.03XA Contusion of scalp, initial encounter (principal); W22.8XXA Striking against or struck by other objects, initial encounter; Y92.018 Other place in single-family (private) house as the place of occurrence of the external cause; Z79.899 Other long term (current) drug therapy; Z88.0 Allergy status to penicillin; Z88.1 Allergy status to other antibiotic agents; Z88.2 Allergy status to sulfonamides; Z88.8 Allergy status to other drugs, medicaments and biological substances; Z91.018 Allergy to other foods; F17.210 Nicotine dependence, cigarettes, uncomplicated

== ENCOUNTER 2019-06-27 21:02 | Emergency (ER) | payer OTHER ==
[~2019-06-27] VITALS: Ht 152.4 cm; Wt 72.7 kg
[2019-06-27] MEDS ORDERED: GI COCKTAIL 50ML BTL(HYOSCYAMINE/MAALOX/LIDOCAINE VISCOUS)(1:3:1) PO ONE (21:30)
[2019-06-27] MEDS ORDERED: ONDANSETRON 4MG/2ML VIAL (J2405) IV ONE (22:30)
[2019-06-27 22:36] LABS: BASO # 0.1 10^3/uL (0.0-0.2); BASO % 0.4 % (0.0-1.0); EOS # 0.1 10^3/uL (0.0-0.5); EOS % 0.7 % (0.0-3.0); HEMOGLOBIN 15.6 g/dl (12.0-15.5); LYMPH # 1.8 10^3/uL (1.5-5.0); LYMPH % 10.6 % (24.0-44.0); MEAN CORPUSCULAR HEMOGLOBIN 31.2 pg (27.0-33.0); MEAN CORPUSCULAR HGB CONC 34.7 g/dl (32.0-36.5); MONO # 0.7 10^3/uL (0.0-0.8); MONO % 3.9 % (0.0-5.0); NEUTROPHILS % 83.9 % (36.0-66.0); PLATELET COUNT, AUTOMATED 275 10^3/uL (150-450); WHITE BLOOD COUNT 16.8 10^3/uL (4.0-10.0)
[2019-06-27] MEDS ORDERED: NS 1,000 ML IV ONE (22:45)
[2019-06-27 23:01] LABS: ALT/SGPT 21 U/L (12-78); BILIRUBIN,DIRECT 0.1 MG/DL (0.0-0.2); BILIRUBIN,TOTAL 0.3 MG/DL (0.2-1.0); BLOOD UREA NITROGEN 21 MG/DL (7-18); CALCIUM LEVEL 9.1 MG/DL (8.8-10.2); CARBON DIOXIDE LEVEL 25 MEQ/L (21-32); CHLORIDE LEVEL 110 MEQ/L (98-107); CREATININE FOR GFR 0.78 MG/DL (0.55-1.30); GLOMERULAR FILTRATION RATE > 60.0 (>45); GLUCOSE, FASTING 120 MG/DL (70-100); LIPASE 81 U/L (73-393); POTASSIUM SERUM 3.1 MEQ/L (3.5-5.1); SODIUM LEVEL 143 MEQ/L (136-145)
[2019-06-27] MEDS ORDERED: ISOVUE-370 76% 100ML VIAL (Q9967) As Ordered ONE (23:10)
[2019-06-28] MEDS ORDERED: POTASSIUM CHLORIDE 10 MEQ SR TABLET PO ONE (00:15)
--- NOTE | 2019-06-28 00:15 | REPVR ---
PROCEDURE INFORMATION: Exam: CT Abdomen and pelvis with contrast Exam date and time: 06/27/2019 11:23 PM Clinical history: 58 years old, female; Abdominal pain; Localized; Left; Additional info: Left sided abdominal pain TECHNIQUE: Imaging protocol: Computed tomography of the abdomen and pelvis with intravenous contrast. Axial, coronal and sagittal reformatted images were created and reviewed. Radiation optimization: All CT scans at this facility use at least one of these dose optimization techniques: automated exposure control; mA and/or kV adjustment per patient size (includes targeted exams where dose is matched to clinical indication); or iterative reconstruction. Contrast material: ISOVUE 370; Contrast volume: 100 ml; Contrast route: IV; COMPARISON: CT ABD PELVIS W/O CONTRAST 12/30/2016 5:33 PM FINDINGS: Lungs: Mild linear stranding and groundglass at the lung bases, likely due to atelectasis and/or scarring. Mediastinum: Small hiatal hernia. Liver: Unchanged 2.6 x 2.1 cm low density lesion in the left hepatic lobe, possibly a hemangioma. Gallbladder and bile ducts: No radiodense gallstones. No biliary ductal dilatation. Pancreas: Unremarkable. Spleen: Unremarkable. Adrenals: Unremarkable. Kidneys and ureters: No mass. No radiodense calculi. No hydronephrosis. Stomach and bowel: Nondilated, fluid-filled loops of small bowel with liquefied stool and air fluid levels in the right colon. No obstruction. No bowel wall thickening. No pneumatosis. Appendix: Appendix not identified with certainty but no right lower quadrant inflammatory change to suggest acute appendicitis. Intraperitoneal space: No free fluid. No organized fluid collection. No free air. Vasculature: Mild to moderate atherosclerotic disease. No aneurysm or dissection. Lymph nodes: No pathologically enlarged lymph nodes. Bladder: Unremarkable. Reproductive: Status post hysterectomy. Bones/joints: No acute osseous abnormality. Degenerative changes. Soft tissues: Small, fat-containing umbilical hernia. IMPRESSION: 1. Nondilated, fluid-filled loops of small bowel with liquefied stool and air fluid levels in the right colon. Gastroenteritis could produce this appearance. 2. Additional findings, as above. Electronically signed by: Shaun Pennington On 06/28/2019 00:15:12 AM
[2019-06-28 00:42] VITALS: BP 129/71
--- NOTE | 2019-06-28 07:10 | ECGEPIP ---
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
== END 2019-06-28 01:51 | disposition home or self-care (01) ==
LOC: M ED 21:02
DX: R10.9 Unspecified abdominal pain (principal); K44.9 Diaphragmatic hernia without obstruction or gangrene; K76.89 Other specified diseases of liver; R39.198 Other difficulties with micturition; I10 Essential (primary) hypertension; Z87.442 Personal history of urinary calculi; E78.5 Hyperlipidemia, unspecified; J45.909 Unspecified asthma, uncomplicated; Z88.0 Allergy status to penicillin; Z88.1 Allergy status to other antibiotic agents; Z88.2 Allergy status to sulfonamides; Z91.041 Radiographic dye allergy status; Z79.51 Long term (current) use of inhaled steroids; Z79.899 Other long term (current) drug therapy
CPT/HCPCS: 74177; 80048; 80076; 81001; 83690; 85025; 87086; 93005; 96361; 96374; 99285; J2405; Q9967

== ENCOUNTER → 2019-07-26 | Outpatient (REF) | payer OTHER ==
[2019-07-26 17:44] LABS: APPEARANCE, URINE CLEAR (CLEAR); BACTERIA, URINE AUTO NEGATIVE (NEGATIVE); BILIRUBIN, URINE AUTO NEGATIVE (NEGATIVE); BLOOD, URINE BLOOD NEGATIVE (NEGATIVE); COLOR, URINE YELLOW (YELLOW); GLUCOSE, URINE (UA) AUTO NEGATIVE (NEGATIVE); KETONE, URINE AUTO TRACE mg/dL (NEGATIVE); LEUKOCYTE ESTERASE, URINE AUTO NEGATIVE (NEGATIVE); NITRITE, URINE AUTO NEGATIVE (NEGATIVE); PROTEIN, URINE AUTO NEGATIVE (NEGATIVE); RBC, URINE AUTO 1 /HPF (0-3); SPECIFIC GRAVITY URINE AUTO 1.013 (1.002-1.035); SQUAMOUS EPITHELIAL CELL UR AU 1 /HPF (0-6); UROBILINOGEN, URINE AUTO 0.2 mg/dL (0.0-2.0); WBC, URINE AUTO 0 /HPF (0-3)
== END ==
LOC: M SMT 16:56
PROVIDERS: ATTEND Nurse Practitioner Family
DX: R31.29 Other microscopic hematuria (principal)

== ENCOUNTER 2020-02-02 13:02 | Emergency (ER) | payer OTHER ==
[~2020-02-02] VITALS: Ht 152.4 cm; Wt 76.6 kg
[2020-02-02] MEDS ORDERED: HYDR25TAB PO (13:23)
[2020-02-02] MEDS ORDERED: VITA50005 PO (13:23)
[2020-02-02] MEDS ORDERED: LOSA100T50 PO (13:23)
[2020-02-02] MEDS ORDERED: METOCLOPRAMIDE 10 MG TAB PO ONE (13:45)
[2020-02-02] MEDS ORDERED: COMBIVENT RESPIMAT 100-20MCG INHALER 4GM INH ONE (13:45)
[2020-02-02] MEDS ORDERED: LOSARTAN 50MG TABLET PO ONE (13:45)
[2020-02-02] MEDS ORDERED: ACETAMINOPHEN 325 MG TAB PO ONE (13:45)
[2020-02-02] MEDS ORDERED: hydroCHLOROthiazide 25 MG TAB PO ONE (13:45)
[2020-02-02 14:08] LABS: VENOUS BASE EXCESS 0.4 (-2.0-2.0); VENOUS HCO3 27.6 MEQ/L (23.0-27.0); VENOUS O2 SATURATION 65.6 % (60.0-80.0); VENOUS PARTIAL PRESSURE CO2 54.2 mmHg (38.0-50.0); VENOUS PARTIAL PRESSURE O2 33.3 mmHg (30.0-50.0); VENOUS PH 7.325 UNITS (7.330-7.430); VENOUS TOTAL CO2 29.3 MEQ/L (24.0-28.0)
[2020-02-02 14:09] VITALS: BP 209/80
[2020-02-02 14:13] LABS: BASO # 0.1 10^3/uL (0.0-0.2); BASO % 0.7 % (0.0-1.0); EOS # 0.2 10^3/uL (0.0-0.5); EOS % 2.8 % (0.0-3.0); HEMATOCRIT 44.8 % (36.0-47.0); HEMOGLOBIN 15.3 g/dl (12.0-15.5); LYMPH # 3.1 10^3/uL (1.5-5.0); LYMPH % 43.2 % (24.0-44.0); MEAN CORPUSCULAR HEMOGLOBIN 31.4 pg (27.0-33.0); MEAN CORPUSCULAR HGB CONC 34.2 g/dl (32.0-36.5); MEAN CORPUSCULAR VOLUME 91.8 fl (80.0-96.0); MONO # 0.4 10^3/uL (0.0-0.8); MONO % 5.3 % (0.0-5.0); NEUTROPHILS # 3.5 10^3/uL (1.5-8.5); NEUTROPHILS % 47.7 % (36.0-66.0); PLATELET COUNT, AUTOMATED 251 10^3/uL (150-450); RED BLOOD COUNT 4.88 10^6/uL (4.00-5.40); WHITE BLOOD COUNT 7.2 10^3/uL (4.0-10.0)
[2020-02-02 14:37] LABS: ALBUMIN 3.9 GM/DL (3.2-5.2); ALT/SGPT 25 U/L (12-78); BILIRUBIN,DIRECT < 0.1 MG/DL (0.0-0.2); BILIRUBIN,TOTAL 0.3 MG/DL (0.2-1.0); BLOOD UREA NITROGEN 11 MG/DL (7-18); CARBON DIOXIDE LEVEL 31 MEQ/L (21-32); CHLORIDE LEVEL 115 MEQ/L (98-107); CREATININE FOR GFR 0.74 MG/DL (0.55-1.30); GLOMERULAR FILTRATION RATE > 60.0 (>45); GLUCOSE, FASTING 88 MG/DL (70-100); POTASSIUM SERUM 4.2 MEQ/L (3.5-5.1); SODIUM LEVEL 152 MEQ/L (136-145); TOTAL PROTEIN 7.1 GM/DL (6.4-8.2)
--- NOTE | 2020-02-02 14:50 | REP ---
REASON: Headache. COMPARISON: 05/30/2019 There is no significant change from the prior exam. There are no extra-axial fluid collections. The ventricles and sulci are again seen to be within normal limits. There is no shift of the midline structures. The deep cerebral white matter is unchanged. There is no evidence of an acute intracranial hemorrhagic or nonhemorrhagic event. There is no skull fracture. The imaged paranasal sinuses again show mucosal thickening. The mastoid air cells are clear. IMPRESSION: No acute intracranial pathology or significant change from the prior exam. Electronically Signed by Shorty Harrington DO 02/02/2020 03:33 P
--- NOTE | 2020-02-02 14:51 | REP ---
TWO-VIEW CHEST: REASON: Cough and dyspnea. COMPARISON: 01/16/2019 FINDINGS: The superior mediastinal structures are midline. The cardiac silhouette is unremarkable in size, shape, and position. The diaphragmatic surfaces of the lungs are regular, and the costophrenic angles are clear. The pulmonary jack are clear. The imaged osseous structures are intact. IMPRESSION: There is no acute cardiopulmonary disease. Electronically Signed by Shorty Harrington DO 02/02/2020 03:33 P
[2020-02-02 15:00] VITALS: BP 175/86
[2020-02-02] MEDS ORDERED: REGL10TA6 PO (15:06)
== END 2020-02-02 15:13 | disposition home or self-care (01) ==
LOC: M ED 13:02
DX: R11.0 Nausea (principal); R53.83 Other fatigue; B34.9 Viral infection, unspecified; I10 Essential (primary) hypertension; J44.9 Chronic obstructive pulmonary disease, unspecified; E07.9 Disorder of thyroid, unspecified; Z79.899 Other long term (current) drug therapy; Z79.890 Hormone replacement therapy; Z88.0 Allergy status to penicillin; Z88.1 Allergy status to other antibiotic agents; Z88.2 Allergy status to sulfonamides; Z88.8 Allergy status to other drugs, medicaments and biological substances; Z91.048 Other nonmedicinal substance allergy status; F17.210 Nicotine dependence, cigarettes, uncomplicated

== ENCOUNTER 2021-06-28 08:59 | Emergency (ER) | payer OTHER ==
[~2021-06-28] VITALS: Ht 152.4 cm; Wt 75.0 kg
[~2021-06-28 08:59] MED LIST changes: +ERGO500029 PO; +GABA-282 PO; -GABA-843 PO; +HYDR-3490 PO; +REGL10TA6 PO
[2021-06-28] MEDS ORDERED: VITA1CAP25 (09:53)
[2021-06-28] MEDS ORDERED: LOSA100T5 (09:53)
[2021-06-28 10:22] LABS: BASO % 0.7 % (0.0-1.0); EOS # 0.2 10^3/uL (0.0-0.5); EOS % 3.3 % (0.0-3.0); HEMATOCRIT 41.9 % (36.0-47.0); HEMOGLOBIN 14.6 g/dl (12.0-15.5); LYMPH # 2.6 10^3/uL (1.5-5.0); LYMPH % 42.6 % (24.0-44.0); MEAN CORPUSCULAR HGB CONC 34.8 g/dl (32.0-36.5); MONO # 0.4 10^3/uL (0.0-0.8); MONO % 5.9 % (2.0-8.0); NEUTROPHILS # 2.9 10^3/uL (1.5-8.5); PLATELET COUNT, AUTOMATED 255 10^3/uL (150-450); RED BLOOD COUNT 4.71 10^6/uL (4.00-5.40); WHITE BLOOD COUNT 6.1 10^3/uL (4.0-10.0)
[2021-06-28 10:39] LABS: INR 0.95; PROTHROMBIN TIME 13.1 SECONDS (12.7-14.5)
[2021-06-28 10:40] LABS: PARTIAL THROMBOPLASTIN TIME 29.5 SECONDS (25.9-37.0)
[2021-06-28 10:44] LABS: ALBUMIN 3.5 GM/DL (3.2-5.2); ALT/SGPT 23 U/L (12-78); BILIRUBIN,DIRECT < 0.1 MG/DL (0.0-0.2); BILIRUBIN,TOTAL 0.3 MG/DL (0.2-1.0); LIPASE 58 U/L (73-393); TOTAL PROTEIN 6.5 GM/DL (6.4-8.2)
[2021-06-28] MEDS: GASTROGRAFIN SOLUTION 30ML PO SCH ×2 (11:21→11:45)
[2021-06-28 11:25] LABS: APPEARANCE, URINE CLEAR (CLEAR); BACTERIA, URINE AUTO NEGATIVE (NEGATIVE); BILIRUBIN, URINE AUTO NEGATIVE (NEGATIVE); BLOOD, URINE BLOOD NEGATIVE (NEGATIVE); COLOR, URINE STRAW (YELLOW); GLUCOSE, URINE (UA) AUTO NEGATIVE (NEGATIVE); KETONE, URINE AUTO NEGATIVE (NEGATIVE); LEUKOCYTE ESTERASE, URINE AUTO NEGATIVE (NEGATIVE); NITRITE, URINE AUTO NEGATIVE (NEGATIVE); PROTEIN, URINE AUTO NEGATIVE (NEGATIVE); RBC, URINE AUTO 0 /HPF (0-3); SPECIFIC GRAVITY URINE AUTO 1.004 (1.002-1.035); SQUAMOUS EPITHELIAL CELL UR AU 0 /HPF (0-6); UROBILINOGEN, URINE AUTO 0.2 mg/dL (0.0-2.0); WBC, URINE AUTO 0 /HPF (0-3)
[2021-06-28 11:55] LABS: BLOOD UREA NITROGEN 14 MG/DL (7-18); CALCIUM LEVEL 8.9 MG/DL (8.8-10.2); CARBON DIOXIDE LEVEL 28 MEQ/L (21-32); CHLORIDE LEVEL 109 MEQ/L (98-107); CREATININE FOR GFR 0.74 MG/DL (0.55-1.30); GLOMERULAR FILTRATION RATE > 60.0 (>45); GLUCOSE, FASTING 114 MG/DL (70-100); POTASSIUM SERUM 3.8 MEQ/L (3.5-5.1); SODIUM LEVEL 141 MEQ/L (136-145)
[2021-06-28] MEDS ORDERED: ISOVUE-370 76% 100ML VIAL As Ordered ONE (12:38)
[2021-06-28 13:09] VITALS: BP 183/93
--- NOTE | 2021-06-28 13:17 | REP ---
INDICATION: 60yo F lower GI bleeding, low abd pain, eval for diverticuli. COMPARISON: Comparison CT study June 27, 2019. TECHNIQUE: Helical scanning is acquired and 3 mm axial images re-formatted. Coronal and sagittal MPR images are generated. The CT contrast enhancement dose is 100 mL of intravenous Isovue 370. Oral contrast was also administered. 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 The lung bases are free of infiltrate. There are minimal linear densities in the lingular segment of the left upper lobe and in the right middle lobe unchanged from the prior study consistent with fibrosis. No pleural effusion is seen. There is a peripheral hemangioma in the left lobe of the liver near the dome of the diaphragm unchanged from the June 27, 2019 prior study. This measures 2.2 cm in greatest diameter. No 5 other focal liver lesion is seen. No abnormality is noted in the gallbladder or pancreas. Spleen is homogeneous. Kidneys enhance symmetrically and are morphologically intact. There is atherosclerotic calcification and some plaquing of the abdominal aorta mild ectasia but no robert aneurysm. Small and large bowel loops are normal in the upper abdomen. Pelvic CT images demonstrate a normal appendix in the right mid pelvis. No ovarian abnormality is seen. The uterus is surgically absent. Urinary bladder is unremarkable. There is left colonic diverticulosis mild in degree. There is minimal sigmoid colon mural thickening. No pericolonic streaking is seen. No gastrointestinal obstructive lesion is seen. No abdominal wall defect is seen. Bone window settings show no bony destructive lesion. IMPRESSION: Mild diverticulosis of the sigmoid colon with minimal mural thickening but no pericolonic streaking or abscess. Post hysterectomy. Stable hemangioma of the liver. Normal appendix. No other acute abnormality. <Electronically signed by Goi Shook > 06/28/21 [id number]
== END 2021-06-28 14:08 | disposition home or self-care (01) ==
LOC: M ED 08:59
DX: K64.8 Other hemorrhoids (principal); R10.31 Right lower quadrant pain; R10.32 Left lower quadrant pain; K57.30 Diverticulosis of large intestine without perforation or abscess without bleeding; D18.09 Hemangioma of other sites; I10 Essential (primary) hypertension; K59.00 Constipation, unspecified; Z90.710 Acquired absence of both cervix and uterus; Z88.0 Allergy status to penicillin; Z88.1 Allergy status to other antibiotic agents; Z88.2 Allergy status to sulfonamides; Z88.8 Allergy status to other drugs, medicaments and biological substances; Z79.899 Other long term (current) drug therapy; Z79.890 Hormone replacement therapy
CPT/HCPCS: 36415; 74177; 80047; 80048; 80076; 81001; 83690; 85025; 85610; 85730; 86850; 86900; 86901; 99284; Q9963; Q9967

== ENCOUNTER 2021-10-16 07:53 | Emergency (ER) | payer OTHER ==
[~2021-10-16] VITALS: Ht 152.4 cm; Wt 72.7 kg
[~2021-10-16 07:53] MED LIST changes: +LOSA100T45 PO; +LOSA100T5; -LOSA100T50 PO; +LOSA50TA28 PO; -LOSA50TA88 PO; +VITA1CAP25
[2021-10-16] MEDS ORDERED: NS 1,000 ML IV ONE (08:10)
[2021-10-16] MEDS ORDERED: ONDANSETRON 4MG/2ML VIAL IV ONE (08:10)
[2021-10-16 08:37] LABS: BASO % 0.3 % (0.0-1.0); EOS # 0.1 10^3/uL (0.0-0.5); EOS % 0.7 % (0.0-3.0); HEMATOCRIT 44.4 % (36.0-47.0); HEMOGLOBIN 15.7 g/dl (12.0-15.5); LYMPH # 3.1 10^3/uL (1.5-5.0); LYMPH % 32.1 % (24.0-44.0); MEAN CORPUSCULAR HEMOGLOBIN 30.9 pg (27.0-33.0); MEAN CORPUSCULAR HGB CONC 35.4 g/dl (32.0-36.5); MEAN CORPUSCULAR VOLUME 87.4 fl (80.0-96.0); MONO # 0.4 10^3/uL (0.0-0.8); MONO % 4.1 % (2.0-8.0); NEUTROPHILS % 62.6 % (36.0-66.0); PLATELET COUNT, AUTOMATED 290 10^3/uL (150-450); RED BLOOD COUNT 5.08 10^6/uL (4.00-5.40); WHITE BLOOD COUNT 9.5 10^3/uL (4.0-10.0)
[2021-10-16 09:03] LABS: ALT/SGPT 24 U/L (12-78); BILIRUBIN,DIRECT 0.1 MG/DL (0.0-0.2); BILIRUBIN,TOTAL 0.4 MG/DL (0.2-1.0); BLOOD UREA NITROGEN 11 MG/DL (7-18); CALCIUM LEVEL 9.6 MG/DL (8.8-10.2); CARBON DIOXIDE LEVEL 27 MEQ/L (21-32); CHLORIDE LEVEL 108 MEQ/L (98-107); CREATININE FOR GFR 0.71 MG/DL (0.55-1.30); GLOMERULAR FILTRATION RATE > 60.0 (>45); GLUCOSE, FASTING 135 MG/DL (70-100); LIPASE 66 U/L (73-393); POTASSIUM SERUM 3.3 MEQ/L (3.5-5.1); SODIUM LEVEL 143 MEQ/L (136-145); TOTAL PROTEIN 7.4 GM/DL (6.4-8.2)
[2021-10-16] MEDS ORDERED: ISOVUE-370 76% 100ML VIAL As Ordered ONE (09:09)
[2021-10-16] MEDS ORDERED: POTASSIUM CHLORIDE 10MEQ SR TABLET PO ONE (10:00)
[2021-10-16] MEDS ORDERED: ONDA4TAB6 PO (11:12)
[2021-10-16 11:41] VITALS: BP 143/86
== END 2021-10-16 11:43 | disposition home or self-care (01) ==
LOC: M ED 07:53
DX: R10.84 Generalized abdominal pain (principal); R11.2 Nausea with vomiting, unspecified; I10 Essential (primary) hypertension; E78.5 Hyperlipidemia, unspecified; J45.909 Unspecified asthma, uncomplicated; F17.200 Nicotine dependence, unspecified, uncomplicated; Z87.442 Personal history of urinary calculi; Z79.51 Long term (current) use of inhaled steroids; Z79.899 Other long term (current) drug therapy; Z88.0 Allergy status to penicillin; Z88.1 Allergy status to other antibiotic agents; Z88.2 Allergy status to sulfonamides
CPT/HCPCS: 74177; 80048; 80076; 83690; 85025; 96360; 96361; 99284; J2405; Q9967; U0003

== ENCOUNTER → 2021-10-17 | Outpatient (REF) | payer OTHER | LOC: M LAB REF 09:59 | PROVIDERS: ATTEND Emergency Medicine | DX: R19.7 Diarrhea, unspecified (principal) ==

== ENCOUNTER → 2022-01-29 | Outpatient (CLI) | payer OTHER | LOC: M WUC 09:47 | PROVIDERS: ATTEND Nurse Practitioner Family | DX: M17.0 Bilateral primary osteoarthritis of knee (principal) ==

== ENCOUNTER 2022-02-19 14:54 | Emergency (ER) | payer OTHER ==
[~2022-02-19] VITALS: Ht 152.4 cm; Wt 170.0 kg
[2022-02-19] MEDS ORDERED: ALPR0.25 (15:14)
[2022-02-19] MEDS ORDERED: BETA5OI (15:14)
[2022-02-19] MEDS ORDERED: ASPIRIN 81 MG CHEW TABLET PO ONE (15:30)
[2022-02-19] MEDS ORDERED: METOCLOPRAMIDE INJ 10MG/2ML VIAL (J2765 PER 1) IV ONE (15:30)
[2022-02-19 15:50] LABS: BASO # 0.1 10^3/uL (0.0-0.2); BASO % 0.8 % (0.0-1.0); EOS # 0.2 10^3/uL (0.0-0.5); EOS % 2.6 % (0.0-3.0); HEMATOCRIT 43.7 % (36.0-47.0); HEMOGLOBIN 15.7 g/dl (12.0-15.5); LYMPH # 3.5 10^3/uL (1.5-5.0); LYMPH % 46.2 % (24.0-44.0); MEAN CORPUSCULAR HEMOGLOBIN 31.7 pg (27.0-33.0); MEAN CORPUSCULAR HGB CONC 35.9 g/dl (32.0-36.5); MEAN CORPUSCULAR VOLUME 88.1 fl (80.0-96.0); MONO # 0.5 10^3/uL (0.0-0.8); MONO % 6.6 % (2.0-8.0); NEUTROPHILS # 3.3 10^3/uL (1.5-8.5); NEUTROPHILS % 43.5 % (36.0-66.0); PLATELET COUNT, AUTOMATED 275 10^3/uL (150-450); RED BLOOD COUNT 4.96 10^6/uL (4.00-5.40); WHITE BLOOD COUNT 7.6 10^3/uL (4.0-10.0)
[2022-02-19 16:01] LABS: INR 0.92; PROTHROMBIN TIME 12.8 SECONDS (12.7-14.5)
[2022-02-19 16:05] LABS: ALT/SGPT 27 U/L (12-78); BILIRUBIN,DIRECT 0.1 MG/DL (0.0-0.2); BILIRUBIN,TOTAL 0.6 MG/DL (0.2-1.0); BLOOD UREA NITROGEN 15 MG/DL (7-18); CALCIUM LEVEL 10.2 MG/DL (8.8-10.2); CARBON DIOXIDE LEVEL 29 MEQ/L (21-32); CHLORIDE LEVEL 106 MEQ/L (98-107); CREATININE FOR GFR 0.75 MG/DL (0.55-1.30); GLOMERULAR FILTRATION RATE > 60.0 (>45); GLUCOSE, FASTING 114 MG/DL (70-100); LIPASE 70 U/L (73-393); POTASSIUM SERUM 3.6 MEQ/L (3.5-5.1); SODIUM LEVEL 140 MEQ/L (136-145); TOTAL PROTEIN 7.2 GM/DL (6.4-8.2)
[2022-02-19] MEDS ORDERED: KETOROLAC 30 MG/ML 1ML VIAL IV ONE (16:05)
[2022-02-19 16:06] LABS: CK-MB VALUE MASS 1.2 NG/ML (<3.6); MB/CK RELATIVE INDEX 1.08 (< OR =4)
[2022-02-19 17:22] LABS: CK-MB VALUE MASS 1.8 NG/ML (<3.6); CPK CREATINE PHOSPHOKINASE 113 U/L (26-192); MB/CK RELATIVE INDEX 1.59 (< OR =4)
[2022-02-19 17:58] VITALS: BP 157/74
== END 2022-02-19 18:07 | disposition home or self-care (01) ==
LOC: M ED 14:54
DX: R07.9 Chest pain, unspecified (principal); G43.909 Migraine, unspecified, not intractable, without status migrainosus; R94.31 Abnormal electrocardiogram [ECG] [EKG]; I10 Essential (primary) hypertension; J45.909 Unspecified asthma, uncomplicated; Z79.51 Long term (current) use of inhaled steroids; Z79.899 Other long term (current) drug therapy
CPT/HCPCS: 70450; 71045; 80053; 82248; 82550; 82553; 83690; 85025; 85610; 93005; 93041; 94760; 96374; 96375; 99285; J1885; J2765

== ENCOUNTER 2022-05-22 11:57 | Inpatient (IN) | payer OTHER ==
[~2022-05-22] VITALS: Ht 152.4 cm; Wt 77.3 kg
[~2022-05-22 11:57] MED LIST changes: +ALPR0.25; +BETA5OI
[2022-05-22] MEDS ORDERED: MORPHINE 4 MG/ML 1ML VIAL/SYRINGE IV ONE ×2 (12:35→15:05)
[2022-05-22] MEDS ORDERED: ONDANSETRON 4MG 2ML VIAL IV ONE (12:40)
[2022-05-22 13:16] LABS: BASO % 0.6 % (0.0-1.0); EOS # 0.2 10^3/uL (0.0-0.5); HEMATOCRIT 42.6 % (36.0-47.0); HEMOGLOBIN 14.7 g/dl (12.0-15.5); LYMPH # 3.1 10^3/uL (1.5-5.0); LYMPH % 46.6 % (24.0-44.0); MEAN CORPUSCULAR HEMOGLOBIN 31.1 pg (27.0-33.0); MEAN CORPUSCULAR HGB CONC 34.5 g/dl (32.0-36.5); MEAN CORPUSCULAR VOLUME 90.1 fl (80.0-96.0); MONO # 0.5 10^3/uL (0.0-0.8); NEUTROPHILS # 2.7 10^3/uL (1.5-8.5); NEUTROPHILS % 41.5 % (36.0-66.0); PLATELET COUNT, AUTOMATED 262 10^3/uL (150-450); RED BLOOD COUNT 4.73 10^6/uL (4.00-5.40); WHITE BLOOD COUNT 6.6 10^3/uL (4.0-10.0)
[2022-05-22 13:28] LABS: INR 0.99; PROTHROMBIN TIME 13.5 SECONDS (12.7-14.5)
[2022-05-22 13:29] LABS: PARTIAL THROMBOPLASTIN TIME 28.9 SECONDS (25.9-37.0)
[2022-05-22 15:02] VITALS: BP 156/75
[2022-05-22] MEDS ORDERED: MORPHINE 4 MG/ML 1ML VIAL/SYRINGE IV PRN (18:20)
[2022-05-22] MEDS ORDERED: MAALOX 30 ML SUSP *UDC PO PRN (18:20)
[2022-05-22] MEDS ORDERED: POTASSIUM CHLORIDE 10MEQ SR TABLET PO ONE (18:20)
[2022-05-22] MEDS ORDERED: NS 1,000 ML IV SCH (18:20)
[2022-05-22] MEDS ORDERED: MOM 30ML SUSPENSION UDC PO PRN (18:20)
[2022-05-22] MEDS ORDERED: ACETAMINOPHEN TAB 650MG DOSE (2X325MG) PO PRN (18:20)
[2022-05-22] MEDS ORDERED: LEVO200T4 PO (18:36)
[2022-05-22] MEDS ORDERED: LOSA100T5 PO (18:36)
[2022-05-22] MEDS ORDERED: IBUP-1114 PO (18:38)
[2022-05-22] MEDS ORDERED: APAP325T4 PO (18:38)
[2022-05-22] MEDS ORDERED: HOME MED LIST COMPLETE! XX SCH (18:40)
[2022-05-23] MEDS ORDERED: LEVOTHYROXINE 100MCG TABLET (0.1MG) PO SCH (06:00)
[2022-05-23] MEDS ORDERED: LOSARTAN 50MG TABLET PO SCH (09:00)
[2022-05-23] MEDS ORDERED: ENOXAPARIN 40MG/0.4ML SYRINGE (J1650 PER 10MG) SC SCH (09:00)
== END 2022-05-22 21:30 | disposition left against medical advice (07) | DRG 384 ==
LOC: M ED 11:57 → M ED INP 18:55
PROVIDERS: ADMIT Internal Medicine; ATTEND Internal Medicine
DX: S80.01XA Contusion of right knee, initial encounter (principal); S70.01XA Contusion of right hip, initial encounter; E03.9 Hypothyroidism, unspecified; I10 Essential (primary) hypertension; Z90.79 Acquired absence of other genital organ(s); F17.200 Nicotine dependence, unspecified, uncomplicated; E87.6 Hypokalemia; Z79.890 Hormone replacement therapy; Z79.899 Other long term (current) drug therapy; Z88.0 Allergy status to penicillin; Z88.1 Allergy status to other antibiotic agents; Z88.2 Allergy status to sulfonamides; Z88.8 Allergy status to other drugs, medicaments and biological substances; Z91.048 Other nonmedicinal substance allergy status; W18.2XXA Fall in (into) shower or empty bathtub, initial encounter; Y92.009 Unspecified place in unspecified non-institutional (private) residence as the place of occurrence of the external cause; Z20.822 Contact with and (suspected) exposure to COVID-19; Z91.19 Patient's noncompliance with other medical treatment and regimen

== ENCOUNTER 2022-05-24 11:24 | Emergency (ER) | payer OTHER ==
[~2022-05-24] VITALS: Ht 152.4 cm; Wt 77.3 kg
[~2022-05-24 11:24] MED LIST changes: +APAP325T4 PO; +IBUP-1114 PO; +LOSA100T5 PO
[2022-05-24 11:29] VITALS: BP 152/73
== END 2022-05-24 16:39 | disposition left against medical advice (07) ==
LOC: M ED 11:24
DX: Z53.21 Procedure and treatment not carried out due to patient leaving prior to being seen by health care provider (principal)

== ENCOUNTER 2022-10-26 13:42 | Emergency (ER) | payer OTHER ==
[~2022-10-26] VITALS: Ht 152.4 cm; Wt 79.1 kg
[2022-10-26] MEDS ORDERED: ERGO500029 (13:56)
[2022-10-26] MEDS ORDERED: ALBU8.5H (13:56)
[2022-10-26] MEDS ORDERED: LEVO175T2 (13:56)
[2022-10-26 16:19] VITALS: BP 135/71
== END 2022-10-26 16:20 | disposition home or self-care (01) ==
LOC: M ED 15:52
DX: S70.02XA Contusion of left hip, initial encounter (principal); S40.012A Contusion of left shoulder, initial encounter; W19.XXXA Unspecified fall, initial encounter; F31.9 Bipolar disorder, unspecified; E55.9 Vitamin D deficiency, unspecified; E07.9 Disorder of thyroid, unspecified; F17.200 Nicotine dependence, unspecified, uncomplicated; Z87.442 Personal history of urinary calculi; Y92.009 Unspecified place in unspecified non-institutional (private) residence as the place of occurrence of the external cause; Z88.0 Allergy status to penicillin; Z88.1 Allergy status to other antibiotic agents; Z88.2 Allergy status to sulfonamides; Z88.8 Allergy status to other drugs, medicaments and biological substances; Z79.52 Long term (current) use of systemic steroids; Z79.899 Other long term (current) drug therapy

== ENCOUNTER 2023-04-18 21:08 | Emergency (ER) | payer OTHER ==
[~2023-04-18] VITALS: Ht 152.4 cm; Wt 77.0 kg
[2023-04-18 21:08] VITALS: TEMP 97.4
[~2023-04-18 21:08] MED LIST changes: +ALBU8.5H; +ERGO500029; +LEVO175T2; -LOSA100T45 PO; +LOSA100T46 PO
[2023-04-18 22:46] LABS: BASO # 0.1 10^3/uL (0.0-0.2); BASO % 0.7 % (0.0-1.0); EOS # 0.2 10^3/uL (0.0-0.5); EOS % 2.5 % (0.0-3.0); HEMATOCRIT 43.3 % (36.0-47.0); HEMOGLOBIN 15.1 g/dl (12.0-15.5); LYMPH # 3.6 10^3/uL (1.5-5.0); LYMPH % 47.1 % (24.0-44.0); MEAN CORPUSCULAR HEMOGLOBIN 31.3 pg (27.0-33.0); MEAN CORPUSCULAR HGB CONC 34.9 g/dl (32.0-36.5); MEAN CORPUSCULAR VOLUME 89.6 fl (80.0-96.0); MONO # 0.5 10^3/uL (0.0-0.8); MONO % 6.4 % (2.0-8.0); NEUTROPHILS # 3.3 10^3/uL (1.5-8.5); PLATELET COUNT, AUTOMATED 239 10^3/uL (150-450); RED BLOOD COUNT 4.83 10^6/uL (4.00-5.40); WHITE BLOOD COUNT 7.6 10^3/uL (4.0-10.0)
[2023-04-18 23:23] LABS: ALBUMIN 4.2 G/DL (3.2-5.2); ALKALINE PHOSPHATASE 56 U/L (46-116); ALT/SGPT 22 U/L (7.0-40); AST/SGOT 15 U/L (<34); BILIRUBIN,DIRECT 0.1 MG/DL (<0.4); BILIRUBIN,TOTAL 0.6 MG/DL (0.3-1.2); BLOOD UREA NITROGEN 14 MG/DL (9-23); CALCIUM LEVEL 9.6 MG/DL (8.3-10.6); CARBON DIOXIDE LEVEL 26 MMOL/L (20-31); CHLORIDE LEVEL 106 MMOL/L (98-107); CK-MB VALUE MASS < 1.0 NG/ML (<3.6); CPK CREATINE PHOSPHOKINASE 136 U/L (34-145); CREATININE FOR GFR 0.64 MG/DL (0.55-1.30); GLOMERULAR FILTRATION RATE > 60.0 (>45); GLUCOSE, FASTING 92 MG/DL (74-106); LIPASE 26 U/L (12-53); MB/CK RELATIVE INDEX 0.73 (< OR =4); POTASSIUM SERUM 3.6 MMOL/L (3.5-5.1); SODIUM LEVEL 139 MMOL/L (136-145); TOTAL PROTEIN 6.9 G/DL (5.7-8.2)
[2023-04-19] MEDS ORDERED: KETOROLAC 30 MG/ML 1ML VIAL IV ONE (00:35)
[2023-04-19 00:59] LABS: APPEARANCE, URINE HAZY (CLEAR); BACTERIA, URINE AUTO NEGATIVE (NEGATIVE); BILIRUBIN, URINE AUTO NEGATIVE (NEGATIVE); BLOOD, URINE BLOOD NEGATIVE (NEGATIVE); COLOR, URINE YELLOW (YELLOW); GLUCOSE, URINE (UA) AUTO NEGATIVE (NEGATIVE); KETONE, URINE AUTO NEGATIVE (NEGATIVE); LEUKOCYTE ESTERASE, URINE AUTO TRACE (NEGATIVE); MUCUS, URINE SMALL (NEGATIVE); NITRITE, URINE AUTO NEGATIVE (NEGATIVE); PROTEIN, URINE AUTO NEGATIVE (NEGATIVE); RBC, URINE AUTO 1 /HPF (0-3); SPECIFIC GRAVITY URINE AUTO 1.017 (1.002-1.035); SQUAMOUS EPITHELIAL CELL UR AU 1 /HPF (0-6); WBC, URINE AUTO 5 /HPF (0-3)
[2023-04-19 01:05] LABS: CK-MB VALUE MASS < 1.0 NG/ML (<3.6)
[2023-04-19 01:10] LABS: CPK CREATINE PHOSPHOKINASE 138 U/L (34-145); MB/CK RELATIVE INDEX 0.72 (< OR =4)
[2023-04-19] MEDS ORDERED: ONDANSETRON 4MG 2ML VIAL IV ONE (01:40)
[2023-04-19] MEDS ORDERED: MORPHINE 4 MG/ML 1ML VIAL IV ONE (01:40)
[2023-04-19] MEDS ORDERED: NS 1,000 ML IV ONE (01:40)
[2023-04-19] MEDS ORDERED: TRAM50TA2 PO (03:28)
[2023-04-19 03:31] VITALS: BP 139/63; O2SAT 93
== END 2023-04-19 03:55 | disposition home or self-care (01) ==
LOC: M ED 21:08
DX: R10.13 Epigastric pain (principal); R10.11 Right upper quadrant pain; I10 Essential (primary) hypertension; F17.200 Nicotine dependence, unspecified, uncomplicated; E55.9 Vitamin D deficiency, unspecified; Z88.0 Allergy status to penicillin; Z88.1 Allergy status to other antibiotic agents; Z88.2 Allergy status to sulfonamides; Z79.52 Long term (current) use of systemic steroids; Z79.811 Long term (current) use of aromatase inhibitors; Z79.899 Other long term (current) drug therapy
CPT/HCPCS: 74176; 80048; 80076; 81001; 82550; 82553; 83690; 84443; 85025; 93005; 96361; 96374; 96375; 99284; J1885; J2405

== ENCOUNTER 2024-01-03 10:34 | Emergency (ER) | payer MEDICARE, OTHER ==
[~2024-01-03] VITALS: Ht 152.4 cm; Wt 77.1 kg
[~2024-01-03 10:34] MED LIST changes: +TRAM50TA2 PO
[2024-01-03 10:35] VITALS: BP 190/90; TEMP 96; O2SAT 97
[2024-01-03 11:31] LABS: APPEARANCE, URINE CLEAR (CLEAR); BACTERIA, URINE AUTO NEGATIVE (NEGATIVE); BILIRUBIN, URINE AUTO NEGATIVE (NEGATIVE); BLOOD, URINE BLOOD NEGATIVE (NEGATIVE); COLOR, URINE YELLOW (YELLOW); GLUCOSE, URINE (UA) AUTO NEGATIVE (NEGATIVE); KETONE, URINE AUTO NEGATIVE (NEGATIVE); LEUKOCYTE ESTERASE, URINE AUTO NEGATIVE (NEGATIVE); MUCUS, URINE SMALL (NEGATIVE); NITRITE, URINE AUTO NEGATIVE (NEGATIVE); PROTEIN, URINE AUTO NEGATIVE (NEGATIVE); RBC, URINE AUTO 1 /HPF (0-3); SPECIFIC GRAVITY URINE AUTO 1.014 (1.002-1.035); SQUAMOUS EPITHELIAL CELL UR AU 1 /HPF (0-6); UROBILINOGEN, URINE AUTO 0.2 mg/dL (0.0-2.0); WBC, URINE AUTO 1 /HPF (0-3)
[2024-01-03 11:52] LABS: BASO % 0.6 % (0.0-1.0); EOS # 0.2 10^3/uL (0.0-0.5); EOS % 2.4 % (0.0-3.0); HEMATOCRIT 44.2 % (36.0-47.0); LYMPH # 2.5 10^3/uL (1.5-5.0); LYMPH % 40.7 % (24.0-44.0); MEAN CORPUSCULAR HEMOGLOBIN 31.1 pg (27.0-33.0); MEAN CORPUSCULAR HGB CONC 33.9 g/dl (32.0-36.5); MEAN CORPUSCULAR VOLUME 91.5 fl (80.0-96.0); MONO # 0.5 10^3/uL (0.0-0.8); MONO % 7.2 % (2.0-8.0); NEUTROPHILS % 48.9 % (36.0-66.0); PLATELET COUNT, AUTOMATED 252 10^3/uL (150-450); RED BLOOD COUNT 4.83 10^6/uL (4.00-5.40); WHITE BLOOD COUNT 6.2 10^3/uL (4.0-10.0)
[2024-01-03 12:18] LABS: LIPASE 27 U/L (12-53)
[2024-01-03 12:21] LABS: ALBUMIN 4.3 G/DL (3.2-5.2); ALKALINE PHOSPHATASE 53 U/L (46-116); ALT/SGPT 21 U/L (7.0-40); AST/SGOT 16 U/L (<34); BILIRUBIN,DIRECT 0.1 MG/DL (<0.4); BILIRUBIN,TOTAL 0.5 MG/DL (0.3-1.2); BLOOD UREA NITROGEN 17 MG/DL (9-23); CALCIUM LEVEL 9.5 MG/DL (8.3-10.6); CARBON DIOXIDE LEVEL 31 MMOL/L (20-31); CHLORIDE LEVEL 108 MMOL/L (98-107); CREATININE FOR GFR 0.69 MG/DL (0.55-1.30); GLOMERULAR FILTRATION RATE > 60.0 (>45); GLUCOSE, FASTING 99 MG/DL (74-106); POTASSIUM SERUM 4.3 MMOL/L (3.5-5.1); SODIUM LEVEL 141 MMOL/L (136-145); TOTAL PROTEIN 6.9 G/DL (5.7-8.2)
== END 2024-01-03 14:48 | disposition left against medical advice (07) ==
LOC: M ED 10:34
DX: Z53.21 Procedure and treatment not carried out due to patient leaving prior to being seen by health care provider (principal)

== ENCOUNTER → 2024-04-16 | Outpatient (REF) | payer MEDICARE, OTHER ==
[~2024-04-16] MED LIST changes: +ONDA-282 PO; -ONDA4TAB6 PO
[2024-04-16 14:50] LABS: BASO # 0.1 10^3/uL (0.0-0.2); BASO % 0.8 % (0.0-1.0); EOS # 0.2 10^3/uL (0.0-0.5); EOS % 2.6 % (0.0-3.0); HEMATOCRIT 41.9 % (36.0-47.0); HEMOGLOBIN 14.2 g/dl (12.0-15.5); LYMPH # 3.3 10^3/uL (1.5-5.0); LYMPH % 42.7 % (24.0-44.0); MEAN CORPUSCULAR HEMOGLOBIN 32.2 pg (27.0-33.0); MEAN CORPUSCULAR HGB CONC 33.9 g/dl (32.0-36.5); MONO # 0.4 10^3/uL (0.0-0.8); NEUTROPHILS # 3.8 10^3/uL (1.5-8.5); NEUTROPHILS % 48.4 % (36.0-66.0); PLATELET COUNT, AUTOMATED 266 10^3/uL (150-450); RED BLOOD COUNT 4.41 10^6/uL (4.00-5.40); WHITE BLOOD COUNT 7.8 10^3/uL (4.0-10.0)
[2024-04-16 15:16] LABS: HEMOGLOBIN A1c 5.7 % (4.0-6.0)
[2024-04-16 15:24] LABS: THYROID STIMULATING HORMONE 111.168 uIU/ML (0.55-4.78)
[2024-04-16 15:26] LABS: TOTAL 25(OH) VITAMIN D 18.1 NG/ML (20.0-100.0)
[2024-04-16 15:28] LABS: ALBUMIN 4.1 G/DL (3.2-5.2); ALKALINE PHOSPHATASE 59 U/L (46-116); ALT/SGPT 24 U/L (7.0-40); AST/SGOT 17 U/L (<34); BILIRUBIN,TOTAL 0.4 MG/DL (0.3-1.2); BLOOD UREA NITROGEN 11 MG/DL (9-23); CALCIUM LEVEL 9.2 MG/DL (8.3-10.6); CARBON DIOXIDE LEVEL 29 MMOL/L (20-31); CHLORIDE LEVEL 109 MMOL/L (98-107); CHOLESTEROL LEVEL 313 MG/DL (<200); CHOLESTEROL RISK RATIO 7.67 (<5); CREATININE FOR GFR 0.78 MG/DL (0.55-1.30); GLOMERULAR FILTRATION RATE > 60.0 (>45); GLUCOSE, FASTING 96 MG/DL (74-106); HDL CHOLESTEROL 40.8 MG/DL (>40); LDL CHOLESTEROL 207.8 MG/DL (<100); MAGNESIUM LEVEL 2.3 MG/DL (1.8-2.4); NON-HDL-C 272.2 MG/DL; POTASSIUM SERUM 3.9 MMOL/L (3.5-5.1); SODIUM LEVEL 141 MMOL/L (136-145); TOTAL PROTEIN 6.8 G/DL (5.7-8.2); TRIGLYCERIDES LEVEL 322 MG/DL (<150)
== END ==
LOC: M LAB REF 12:51
PROVIDERS: ATTEND Nurse Practitioner Family
DX: E66.9 Obesity, unspecified (principal); E55.9 Vitamin D deficiency, unspecified; Z79.899 Other long term (current) drug therapy

== ENCOUNTER → 2024-05-10 | Outpatient (CLI) | payer MEDICARE, OTHER | LOC: M RAD 13:46 | PROVIDERS: ATTEND Physician Assistant | DX: T81.89XA Other complications of procedures, not elsewhere classified, initial encounter (principal); Y82.9 Unspecified medical devices associated with adverse incidents ==

== ENCOUNTER → 2024-07-03 | Outpatient (CLI) | payer MEDICARE, OTHER ==
[~2024-07-03] MED LIST changes: +GABA-1172 PO; -GABA-282 PO
== END ==
LOC: M RAD 14:41
PROVIDERS: ATTEND Physician Assistant
DX: T81.89XA Other complications of procedures, not elsewhere classified, initial encounter (principal)

== ENCOUNTER → 2024-08-09 | Outpatient (CLI) | payer MEDICARE, OTHER ==
[2024-08-09 14:09] LABS: BLOOD UREA NITROGEN 13 MG/DL (9-23); CALCIUM LEVEL 9.7 MG/DL (8.3-10.6); CARBON DIOXIDE LEVEL 32 MMOL/L (20-31); CHLORIDE LEVEL 106 MMOL/L (98-107); CREATININE FOR GFR 0.77 MG/DL (0.55-1.30); GLOMERULAR FILTRATION RATE > 60.0 (>45); GLUCOSE, FASTING 96 MG/DL (74-106); POTASSIUM SERUM 3.8 MMOL/L (3.5-5.1); SODIUM LEVEL 143 MMOL/L (136-145)
== END ==
LOC: M RAD 12:39
PROVIDERS: ATTEND Physician Assistant
DX: M79.622 Pain in left upper arm (principal); T81.89XA Other complications of procedures, not elsewhere classified, initial encounter; Y82.9 Unspecified medical devices associated with adverse incidents

== ENCOUNTER → 2024-08-13 | Outpatient (CLI) | payer MEDICARE ==
[~2024-08-13] MED LIST changes: +GASTROGRAFIN SOLUTION 30ML ONE; +ISOVUE-370 76% 100ML VIAL ONE
== END ==
LOC: M PLAIMG 08:44
PROVIDERS: ATTEND Physician Assistant
DX: T81.89XA Other complications of procedures, not elsewhere classified, initial encounter (principal); Y83.9 Surgical procedure, unspecified as the cause of abnormal reaction of the patient, or of later complication, without mention of misadventure at the time of the procedure; N20.0 Calculus of kidney; I70.0 Atherosclerosis of aorta; K40.20 Bilateral inguinal hernia, without obstruction or gangrene, not specified as recurrent
CPT/HCPCS: 74177; Q9963; Q9967

== ENCOUNTER → 2024-09-24 | Outpatient (REF) | payer MEDICARE, MEDICAID ==
[~2024-09-24] MED LIST changes: -GASTROGRAFIN SOLUTION 30ML ONE; -ISOVUE-370 76% 100ML VIAL ONE
[2024-09-24 17:05] LABS: FREE T4 0.74 NG/DL (0.89-1.76); THYROID STIMULATING HORMONE 50.039 uIU/ML (0.55-4.78)
[2024-09-24 17:08] LABS: THYROID PEROXIDASE ANTIBODY > 1300.0 U/ML (<60.0)
== END ==
LOC: M LAB REF 16:19
PROVIDERS: ATTEND Physician Assistant
DX: E03.9 Hypothyroidism, unspecified (principal)

== ENCOUNTER → 2024-11-27 | Outpatient (REF) | payer MEDICARE, MEDICAID ==
[2024-11-27 19:29] LABS: FREE T4 0.89 NG/DL (0.89-1.76)
[2024-11-27 19:30] LABS: THYROID STIMULATING HORMONE 26.069 uIU/ML (0.55-4.78)
== END ==
LOC: M LAB REF 17:45
PROVIDERS: ATTEND Physician Assistant
DX: E03.9 Hypothyroidism, unspecified (principal)

== ENCOUNTER → 2024-12-24 | Outpatient (CLI) | payer MEDICARE, MEDICAID | LOC: M RAD 15:16 | PROVIDERS: ATTEND Physician Assistant | DX: E03.9 Hypothyroidism, unspecified (principal) ==

== ENCOUNTER → 2025-01-22 | Outpatient (REF) | payer MEDICARE, MEDICAID ==
[2025-01-22 19:21] LABS: THYROID STIMULATING HORMONE 3.58 uIU/ML (0.55-4.78)
[2025-01-22 19:22] LABS: FREE T4 1.37 NG/DL (0.89-1.76)
== END ==
LOC: M LAB REF 17:39
PROVIDERS: ATTEND Physician Assistant
DX: E03.9 Hypothyroidism, unspecified (principal)

== ENCOUNTER → 2025-02-05 | Outpatient (REF) | payer MEDICARE, OTHER | LOC: M SFHCDERM 17:23 | PROVIDERS: ATTEND Physician Assistant | DX: D48.9 Neoplasm of uncertain behavior, unspecified (principal); L57.0 Actinic keratosis ==

== ENCOUNTER → 2025-06-10 | Outpatient (REF) | payer MEDICARE, OTHER, MEDICAID ==
[~2025-06-10] MED LIST changes: -IBUP-1022 PO; +IBUP600T42 PO
[2025-06-10 17:11] LABS: APPEARANCE, URINE CLEAR (CLEAR); BACTERIA, URINE AUTO NEGATIVE (NEGATIVE); BILIRUBIN, URINE AUTO NEGATIVE (NEGATIVE); BLOOD, URINE BLOOD NEGATIVE (NEGATIVE); GLUCOSE, URINE (UA) AUTO NEGATIVE (NEGATIVE); KETONE, URINE AUTO NEGATIVE (NEGATIVE); LEUKOCYTE ESTERASE, URINE AUTO NEGATIVE (NEGATIVE); MUCUS, URINE SMALL (NEGATIVE); NITRITE, URINE AUTO NEGATIVE (NEGATIVE); PROTEIN, URINE AUTO NEGATIVE (NEGATIVE); RBC, URINE AUTO 0 /HPF (0-3); SPECIFIC GRAVITY URINE AUTO 1.017 (1.002-1.035); SQUAMOUS EPITHELIAL CELL UR AU 3 /HPF (0-6); UROBILINOGEN, URINE AUTO 0.2 mg/dL (0.0-2.0); WBC, URINE AUTO 0 /HPF (0-3)
[2025-06-10 18:36] LABS: ALT/SGPT 20 U/L (7.0-40); AST/SGOT 19 U/L (<34); CALCIUM LEVEL 9.4 MG/DL (8.3-10.6); CARBON DIOXIDE LEVEL 30 MMOL/L (20-31); CHLORIDE LEVEL 107 MMOL/L (98-107); CHOLESTEROL LEVEL 238 MG/DL (<200); CHOLESTEROL RISK RATIO 5.62 (<5); CREATININE FOR GFR 0.69 MG/DL (0.55-1.30); GLOMERULAR FILTRATION RATE > 90.0 (>45); LDL CHOLESTEROL 169.5 MG/DL (<100); NON-HDL-C 195.7 MG/DL; POTASSIUM SERUM 4.1 MMOL/L (3.5-5.1); SODIUM LEVEL 142 MMOL/L (136-145); TRIGLYCERIDES LEVEL 131 MG/DL (<150)
[2025-06-10 18:40] LABS: BASO # 0.1 10^3/uL (0.0-0.2); BASO % 0.7 % (0.0-1.0); EOS # 0.2 10^3/uL (0.0-0.5); EOS % 3.1 % (0.0-3.0); FREE T4 1.62 NG/DL (0.89-1.76); LYMPH # 3.1 10^3/uL (1.5-5.0); LYMPH % 42.4 % (24.0-44.0); MONO # 0.5 10^3/uL (0.0-0.8); MONO % 6.9 % (2.0-8.0); NEUTROPHILS # 3.4 10^3/uL (1.5-8.5); NEUTROPHILS % 46.6 % (36.0-66.0); PLATELET COUNT, AUTOMATED 310 10^3/uL (150-450)
[2025-06-10 19:02] LABS: CREATININE, URINE 111.5 MG/DL; MALB URINE SIEMENS 4.0 MG/L; MAU/CREAT RATIO 3.5 MCG/MG (0.0-30.0)
[2025-06-10 19:26] LABS: ESTIMATED AVERAGE GLUCOSE 120.0 MG/DL (60-110)
== END ==
LOC: M LAB REF 16:13
PROVIDERS: ATTEND Physician Assistant
DX: E03.9 Hypothyroidism, unspecified (principal); I10 Essential (primary) hypertension; Z79.899 Other long term (current) drug therapy

== ENCOUNTER → 2025-07-02 | Outpatient (CLI) | payer MEDICARE, MEDICAID ==
[~2025-07-02] MED LIST changes: +ISOVUE-370 76% 100 ML VIAL As Ordered ONE
== END ==
LOC: M RAD 15:54
PROVIDERS: ATTEND Physician Assistant
DX: R10.10 Upper abdominal pain, unspecified (principal)
CPT/HCPCS: 72110; 74177; Q9967